=== PATIENT | female | born 1940 | race Caucasian/White ===

== ENCOUNTER 2018-01-12 11:16 | Observation (INO) | payer MEDICARE, OTHER ==
[2018-01-12] MEDS ORDERED: HYDROmorphone 1 MG/ML Syringe IM ONE (11:43)
--- NOTE | 2018-01-12 11:45 | EDM.PDOC ---
ED HPI GENERAL MEDICAL PROBLEM - General Chief Complaint: Upper Extremity Injury/Pain Stated Complaint: FELL PAIN ON LEFT SIDE Time Seen by Provider: 01/12/18 11:38 Source of Information: Reports: Patient, RN Notes Reviewed History Limitations: Reports: No Limitations - History of Present Illness INITIAL COMMENTS - FREE TEXT/NARRATIVE: Karli presents today after falling onto he left side. She complains of left sided rib pain radiating to her left abdomen/flank areas. She denies LOC, use of blood thinners. Pain to left elbow, ROM intact. 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 Left Anterior Chest Pain Score (Numeric/FACES): 10 - Related Data Allergies Allergy/AdvReac Type Severity Reaction Status Date / Time aspirin Allergy Bleeding Verified 01/12/18 11:39 chlordiazepoxide Allergy Swelling Verified 01/12/18 11:39 [From Librax (with clidinium)] chlordiazepoxide HCl Allergy Swelling Verified 01/12/18 11:39 [From Librax (with methscopolamine)] clidinium bromide Allergy Swelling Verified 01/12/18 11:39 [From Librax (with clidinium)] methylscopolamine nitrate Allergy Swelling Verified 01/12/18 11:39 [From Librax (with methscopolamine)] Home Meds: Home Meds Acetaminophen with Codeine [Tylenol with Codeine #3 Tablet] 1 each PO Q6H PRN [History] Cyanocobalamin (Vitamin B-12) [Vitamin B-12] 1 ml INJECT [id number] 01/19/16 [ History] Ferrous Sulfate 325 mg PO DAILY 01/19/16 [History] HCTZ/Triamterene [Maxzide 25-37.5 MG] 2 each PO DAILY 01/19/16 [History] Multivitamin [Multiple Vitamins] 1 each PO DAILY 01/19/16 [History] Omeprazole Magnesium [Prilosec Otc] 20 mg PO BID 01/19/16 [History] PARoxetine [Paxil] 30 mg PO DAILY 01/19/16 [History] Potassium Chloride [Klor-Con 10] 10 meq PO DAILY 01/19/16 [History] Valsartan [Diovan] 80 mg PO DAILY 01/19/16 [History] Past Medical History HEENT History: Reports: Allergic Rhinitis, Cataract, Impaired Vision Cardiovascular History: Reports: Heart Murmur, High Cholesterol, Hypertension Respiratory History: Reports: Sleep Apnea Gastrointestinal History: Reports: GERD, GI Bleed, Other (See Below) Other Gastrointestinal History: Peptic ulcer Genitourinary History: Reports: None [employer] History: Reports: , Spontaneous Musculoskeletal History: Reports: Fracture, Fibromyalgia, Osteoarthritis, Osteoporosis Hematologic History: Reports: Anemia, Blood Transfusion(s) Oncologic (Cancer) History: Reports: Cervix - Infectious Disease History Infectious Disease History: Reports: Chicken Pox, Measles, Mumps, Scarlet Fever - Past Surgical History GI Surgical History: Reports: Appendectomy, Bariatric Procedure, Cholecystectomy , EGD, Hernia, Inguinal Musculoskeletal Surgical History: Reports: Arthroscopic Procedure, Hip Replacement Review of Systems - Review of Systems Review Of Systems: See Below Constitutional: Reports: No Symptoms Eyes: Reports: No Symptoms Ears: Reports: No Symptoms Nose: Reports: No Symptoms Mouth/Throat: Reports: No Symptoms Respiratory: Reports: Other (Pain to left lateral ribs status post fall with radiation to left abdomen/flank areas). Denies: Shortness of Breath, Wheezing, Cough Cardiovascular: Reports: No Symptoms GI/Abdominal: Denies: Abdominal Pain, Nausea, Vomiting Genitourinary: Reports: No Symptoms Musculoskeletal: Reports: Other (left arm pain from fall. 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 Pain to left elbow, edema, abrasion. Exam Limited By: No Limitations General Appearance: Alert, WD/WN, Mild Distress Eye Exam: Bilateral Eye: Normal Inspection, PERRL Ears: Normal External Exam, Normal Canal, Hearing Grossly Normal, Normal TMs Ear Exam: Bilateral Ear: Auricle Normal, Canal Normal, TM normal Nose: Normal Inspection, Normal Mucosa, No Blood Throat/Mouth: Normal Inspection, Normal Lips, Normal Gums, Normal Oropharynx, Normal Voice, No Airway Compromise Head: Atraumatic, Normocephalic Neck: Normal Inspection, Supple, Non-Tender, Full Range of Motion. No: Lymphadenopathy (R), Lymphadenopathy (L) Respiratory/Chest: No Respiratory Distress, Lungs Clear, Normal Breath Sounds, No Accessory Muscle Use, Other (Pain with inspiration to left lateral chest, no subcutaneous emphysema palpated. Tenderness with palpation entire lateral left side from axilla to last rib. ) Cardiovascular: Normal Peripheral Pulses, Regular Rate, Rhythm, No Edema, No Murmur, No Rub Peripheral Pulses: 3+: Radial (L), Radial (R), Dorsalis Pedis (L), Dorsalis Pedis (R) GI/Abdominal: Normal Bowel Sounds, Soft, Non-Tender, No Distention, No Mass Back Exam: Normal Inspection, Full Range of Motion, CVA Tenderness (L). No: CVA Tenderness (R) Extremities: Normal Range of Motion, No Pedal Edema, Normal Capillary Refill, Other (Tenderness with edema to left elbow with small abrasions. ROM intact. ) Neurological: Alert, Oriented, CN II-XII Intact, Normal Cognition, Normal Gait, No Motor/Sensory Deficits, Other (GCS 15) Psychiatric: Normal Affect, Normal Mood Skin Exam: Warm, Dry, No Rash, Ecchymosis, Other (small abrasions to left elbow) Lymphatic: No Adenopathy Course - Vital Signs Last Recorded V/S: Last Vital Signs Temp 36.6 C 01/12/18 11:50 Pulse 69 01/12/18 11:50 Resp 16 01/12/18 11:50 BP 154/82 H 01/12/18 11:50 Pulse Ox 96 01/12/18 11:50 - Orders/Labs/Meds Orders: Active Orders 24 hr Category Date Time Status Chest Abdomen Pelvis wo Cont [CT] Stat Exams 01/12/18 11:43 Taken UA W/MICROSCOPIC [URIN] Stat Lab 01/12/18 12:16 Ordered Sodium Chloride 0.9% [Saline Flush] Med 01/12/18 13:02 Active 10 ml FLUSH ASDIRECTED PRN Saline Lock Insert [OM.PC] Routine Oth 01/12/18 13:02 Ordered Medication Orders Sodium Chloride (Saline Flush) 10 ml FLUSH ASDIRECTED PRN PRN Reason: Keep Vein Open Last Admin: 01/12/18 13:30 Dose: 10 ml Labs: Laboratory Tests 01/12/18 01/12/18 Range/Units 12:16 12:16 WBC 9.5 (4.5-11.0) K/uL RBC 4.41 (3.30-5.50) M/uL Hgb 14.5 (12.0-15.0) g/dL Hct 43.3 (36.0-48.0) % MCV 98 (80-98) fL MCH 33 H (27-31) pg MCHC 34 (32-36) % Plt Count 215 (150-400) K/uL Neut % (Auto) 85 H (36-66) % Lymph % (Auto) 8 L (24-44) % [place] % (Auto) 7 H (2-6) % Eos % (Auto) 0 L (2-4) % Baso % (Auto) 0 (0-1) % Sodium 136 L (140-148) mmol/L Potassium 4.1 (3.6-5.2) mmol/L Chloride 99 L (100-108) mmol/L Carbon Dioxide 29 (21-32) mmol/L Anion Gap 12.1 (5.0-14.0) mmol/L BUN 20 H (7-18) mg/dL Creatinine 0.9 (0.6-1.0) mg/dL Est Cr Clr Drug Dosing 40.74 mL/min Estimated GFR (MDRD) > 60 (>60) Glucose 115 H (74-106) mg/dL Calcium 9.2 (8.5-10.1) mg/dL Total Bilirubin 0.4 (0.2-1.0) mg/dL AST 29 (15-37) U/L ALT 26 (12-78) U/L Alkaline Phosphatase 73 (46-116) U/L Total Protein 7.4 (6.4-8.2) g/dL Albumin 3.6 (3.4-5.0) g/dL Globulin 3.8 H (2.3-3.5) g/dL Albumin/Globulin Ratio 1.0 L (1.2-2.2) Patient lab work reviewed. Meds: Medications Generic Name Dose Route Start Last Admin Trade Name Freq PRN Reason Stop Dose Admin Sodium Chloride 10 ml 01/12/18 13:02 01/12/18 13:30 Saline Flush FLUSH 10 ml ASDIRECTED PRN Administration Keep Vein Open Discontinued Medications Generic Name Dose Route Start Last Admin Trade Name Allanq PRN Reason Stop Dose Admin Hydromorphone HCl 1 mg 01/12/18 11:43 01/12/18 11:54 Dilaudid IM 01/12/18 11:44 1 mg ONETIME ONE Administration GCS 15 - Radiology Interpretation CT Results Date: 01/12/18 (CT chest abdomen pelvis: acute left sided rib fractures of 4th,5th,6th, 7th, 8th and 10th. Tiny pneumothorax. ) - Re-Assessments/Exams Free Text/Narrative Re-Assessment/Exam: 01/12/18 12:42 CT wet read with Dr. Campo, multiple rib fractures identified. Patient will admitted as observation. Dr. Hunt notified, he is in agreement with plan. Patient notified, she is in agreement with plan. Departure - Departure Time of Disposition: 13:04 Disposition: Refer to Observation Condition: Fair Clinical Impression: Ribs, multiple fractures, Left elbow contusion, Pneumothorax - Discharge Information Referrals: Wil Jaeger MD [Primary Care Provider] - Forms: ED Department Discharge - My Orders Last 24 Hours: My Active Orders 01/12/18 11:43 Chest Abdomen Pelvis wo Cont [CT] Stat 01/12/18 12:16 UA W/MICROSCOPIC [URIN] Stat 01/12/18 13:02 Sodium Chloride 0.9% [Saline Flush] 10 ml FLUSH ASDIRECTED PRN Saline Lock Insert [OM.PC] Routine - Assessment/Plan Last 24 Hours: My Active Orders 01/12/18 11:43 Chest Abdomen Pelvis wo Cont [CT] Stat 01/12/18 12:16 UA W/MICROSCOPIC [URIN] Stat 01/12/18 13:02 Sodium Chloride 0.9% [Saline Flush] 10 ml FLUSH ASDIRECTED PRN Saline Lock Insert [OM.PC] Routine Assessment:: Multiple rib fractures left - 4,5,6,7,8,10th ribs Tiny pneumothorax Left elbow contusion Plan: Patient will be admitted as observation for pain control, multiple rib fractures to left side, contusion left elbow.
[2018-01-12] MEDS: Sodium Chloride 0.9% 10 ML Syringe FLUSH PRN (13:30)
--- NOTE | 2018-01-12 13:53 | PCM.HP ---
H&P History of Present Illness - General Date of Service: 01/12/18 Admit Problem/Dx: Admission Diagnosis/Problem Admission Diagnosis/Problem Fracture of rib of left side Source of Information: Patient, Provider History Limitations: Reports: No Limitations - History of Present Illness Initial Comments - Free Text/Narative: Karli presents to the emergency room with left-sided chest pain. Pain started after her dog lunged at her and knocked her into her fireplace mantle. She describes moderate to moderately severe left-sided pain that is worse with respiration and better with rest. She hasn't tried anything to make the pain feel better but did receive a dose of pain medication in the emergency room which has provided significant benefit. Pain is described as sharp. Pain radiates throughout the left side of her chest. She has some mild discomfort in her left elbow which also struck the mantle. She does not have any abdominal pain or nausea. She does report that she feels mildly short of breath because she cannot take a deep breath due to the pain. She does not complain of headache and did not strike her head. No complaints of knee or hip pain. Workup in the emergency room revealed multiple left-sided rib fractures as well as a tiny left-sided pneumothorax. She will be admitted for observation and pain control. Left Anterior Chest Pain Score (Numeric/FACES): 10 - Related Data Allergies/Adverse Reactions: Allergies Allergy/AdvReac Type Severity Reaction Status Date / Time aspirin Allergy Bleeding Verified 01/12/18 11:39 chlordiazepoxide Allergy Swelling Verified 01/12/18 11:39 [From Librax (with clidinium)] chlordiazepoxide HCl Allergy Swelling Verified 01/12/18 11:39 [From Librax (with methscopolamine)] clidinium bromide Allergy Swelling Verified 01/12/18 11:39 [From Librax (with clidinium)] methylscopolamine nitrate Allergy Swelling Verified 01/12/18 11:39 [From Librax (with methscopolamine)] Home Medications: Home Meds Acetaminophen with Codeine [Tylenol with Codeine #3 Tablet] 1 each PO Q6H PRN [History] Cyanocobalamin (Vitamin B-12) [Vitamin B-12] 1 ml INJECT .[id number] 01/19/16 [ History] Ferrous Sulfate 325 mg PO DAILY 01/19/16 [History] HCTZ/Triamterene [Maxzide 25-37.5 MG] 2 each PO DAILY 01/19/16 [History] Multivitamin [Multiple Vitamins] 1 each PO DAILY 01/19/16 [History] Omeprazole Magnesium [Prilosec Otc] 20 mg PO BID 01/19/16 [History] PARoxetine [Paxil] 30 mg PO DAILY 01/19/16 [History] Potassium Chloride [Klor-Con 10] 10 meq PO DAILY 01/19/16 [History] Valsartan [Diovan] 80 mg PO DAILY 01/19/16 [History] Past Medical History HEENT History: Reports: Allergic Rhinitis, Cataract, Impaired Vision Cardiovascular History: Reports: Heart Murmur, High Cholesterol, Hypertension Respiratory History: Reports: Sleep Apnea Gastrointestinal History: Reports: GERD, GI Bleed, Other (See Below) Other Gastrointestinal History: Peptic ulcer Genitourinary History: Reports: 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: , 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 Musculoskeletal History: Reports: Fracture, Fibromyalgia, Osteoarthritis, Osteoporosis Hematologic History: Reports: Anemia, Blood Transfusion(s) Oncologic (Cancer) History: Reports: Cervix - Infectious Disease History Infectious Disease History: Reports: Chicken Pox, Measles, Mumps, Scarlet Fever - Past Surgical History GI Surgical History: Reports: Appendectomy, Bariatric Procedure, Cholecystectomy , EGD, Hernia, Inguinal Musculoskeletal Surgical History: Reports: Arthroscopic Procedure, Hip Replacement Social & Family History - Family History Cardiac: Denies: CAD - Tobacco Use Smoking Status *Q: Former Smoker Years of Tobacco use: 20 Packs/Tins Daily: 0.5 Used Tobacco, but Quit: Yes Month/Year Tobacco Last Used: 1999 Second Hand Smoke Exposure: No - Caffeine Use Caffeine Use: Reports: Coffee - Alcohol Use Alcohol Use History: No - Recreational Drug Use Recreational Drug Use: No H&P Review of Systems - Review of Systems: Review Of Systems: See Below Free Text/Narrative: A complete 12 point review of systems was obtained. Pertinent positives and negatives are noted in the history of present illness. All other systems were reviewed and were negative except as noted. Exam - Exam Exam: See Below - Vital Signs Vital Signs: Last Vital Signs Temp 36.6 C 01/12/18 11:50 Pulse 69 01/12/18 11:50 Resp 16 01/12/18 11:50 BP 154/82 H 01/12/18 11:50 Pulse Ox 96 01/12/18 11:50 Weight: 58.967 kg - Exam Quality Assessment: No: Supplemental Oxygen General: Alert, Oriented, Cooperative. No: Mild Distress HEENT: Conjunctiva Clear, Mucosa Moist & [place]. No: Scleral Icterus Neck: Supple, Trachea Midline Lungs: Clear to Auscultation, Normal Respiratory Effort Cardiovascular: Regular Rate, Regular Rhythm GI/Abdominal Exam: Normal Bowel Sounds, Soft, Non-Tender, No Distention Back Exam: Normal Inspection. No: Full Range of Motion Extremities: No Pedal Edema. No: Increased Warmth Skin: Warm, Dry Neuro Extensive - Mental Status: Alert, Oriented x3, Nl Response to Commands Neuro Extensive - Motor, Sensory, Reflexes: CN II-XII Intact. No: Dysarthria, Abnormal Motor Psychiatric: Alert, Normal Affect - Patient Data Lab Results Last 24 hrs: Laboratory Results - last 24 hr 01/12/18 01/12/18 Range/Units 12:16 12:16 WBC 9.5 (4.5-11.0) K/uL RBC 4.41 (3.30-5.50) M/uL Hgb 14.5 (12.0-15.0) g/dL Hct 43.3 (36.0-48.0) % MCV 98 (80-98) fL MCH 33 H (27-31) pg MCHC 34 (32-36) % Plt Count 215 (150-400) K/uL Neut % (Auto) 85 H (36-66) % Lymph % (Auto) 8 L (24-44) % [place] % (Auto) 7 H (2-6) % Eos % (Auto) 0 L (2-4) % Baso % (Auto) 0 (0-1) % Sodium 136 L (140-148) mmol/L Potassium 4.1 (3.6-5.2) mmol/L Chloride 99 L (100-108) mmol/L Carbon Dioxide 29 (21-32) mmol/L Anion Gap 12.1 (5.0-14.0) mmol/L BUN 20 H (7-18) mg/dL Creatinine 0.9 (0.6-1.0) mg/dL Est Cr Clr Drug Dosing 40.74 mL/min Estimated GFR (MDRD) > 60 (>60) Glucose 115 H (74-106) mg/dL Calcium 9.2 (8.5-10.1) mg/dL Total Bilirubin 0.4 (0.2-1.0) mg/dL AST 29 (15-37) U/L ALT 26 (12-78) U/L Alkaline Phosphatase 73 (46-116) U/L Total Protein 7.4 (6.4-8.2) g/dL Albumin 3.6 (3.4-5.0) g/dL Globulin 3.8 H (2.3-3.5) g/dL Albumin/Globulin Ratio 1.0 L (1.2-2.2) Result Diagrams: 01/12/18 12:16 01/12/18 12:16 Imaging Impressions Last 24 hrs: CT chest/abdomen/pelvis - images personally reviewed. There are multiple left sided rib fractures and a tiny left sided pneumothorax. No effusion. *Q Meaningful Use (ADM) - VTE *Q VTE Pharmacological Contraindications *Q: Risk of Bleeding - VTE Risk Assess *Q Each Risk Factor Represents 1 Point: None Total Score 1 Point Risk Factors: 0 Each Risk Factor Represents 2 Points: None Total Score 2 Point Risk Factors: 0 Each Risk Factor Represents 3 Points: Age 75 Years or Greater Total Score 3 Point Risk Factors: 3 Each Risk Factor Represents 5 Points: None Total Score 5 Point Risk Factors: 0 Venous Thromboembolism Risk Factor Score *Q: 3 - Problem List (1) Ribs, multiple fractures SNOMED Code(s): 7313944 ICD Code: S22.49XA - MULTIPLE FRACTURES OF RIBS, UNSP SIDE, INIT FOR CLOS FX Status: Acute Current Visit: Yes Qualifiers: Encounter type: initial encounter Fracture type: closed Laterality: left Qualified Code(s): S22.42XA - Multiple fractures of ribs, left side, initial encounter for closed fracture (2) Left elbow contusion SNOMED Code(s): 40835541 ICD Code: S50.02XA - CONTUSION OF LEFT ELBOW, INITIAL ENCOUNTER Status: Acute Current Visit: Yes Qualifiers: Encounter type: initial encounter Qualified Code(s): S50.02XA - Contusion of left elbow, initial encounter (3) Pneumothorax SNOMED Code(s): 23390220 ICD Code: J93.9 - PNEUMOTHORAX, UNSPECIFIED Status: Acute Current Visit: Yes Qualifiers: Pneumothorax type: traumatic Encounter type: initial encounter Qualified Code(s): S27.0XXA - Traumatic pneumothorax, initial encounter Problem List Initiated/Reviewed/Updated: Yes Orders Last 24hrs: Active Orders 24 hr Category Date Time Status Patient Status Manage Transfer [TRANSFER] Routine ADT 01/12/18 13:45 Ordered Chest Abdomen Pelvis wo Cont [CT] Stat Exams 01/12/18 11:43 Taken UA W/MICROSCOPIC [URIN] Stat Lab 01/12/18 12:16 Ordered Sodium Chloride 0.9% [Saline Flush] Med 01/12/18 13:02 Active 10 ml FLUSH ASDIRECTED PRN Saline Lock Insert [OM.PC] Routine Oth 01/12/18 13:02 Ordered Resuscitation Status Routine Resus Stat 01/12/18 13:47 Ordered Medication Orders Sodium Chloride (Saline Flush) 10 ml FLUSH ASDIRECTED PRN PRN Reason: Keep Vein Open Last Admin: 01/12/18 13:30 Dose: 10 ml Assessment/Plan Comment:: ASSESSMENT AND PLAN - Multiple left-sided rib fractures with tiny pneumothorax - because of the pain and shortness of breath she's not safe for outpatient management. Fractures were secondary to unintentional trauma. She is not currently hypoxic. -Repeat x-ray in the morning to see if pneumothorax has progressed -Acetaminophen for mild pain -Oxycodone for moderate pain -Hydromorphone for severe pain -Ice Essential hypertension - usual home medications will be continued. Maintenance issues - - DVT prophylaxis - mechanical with significant trauma today - GI prophylaxis - home PPI - Nutrition - regular diet - Hinojosa catheter - not indicated CODE STATUS - full code Admission justification - patient will be referred observation status for pain control and repeat chest x-ray in the morning Disposition - I anticipate discharged home after the hospital stay Primary care physician - Dr. Mil Hunt M.D.
[2018-01-12] MEDS ORDERED: Ondansetron 4 MG Tab.DIS PO PRN (14:20)
[2018-01-12] MEDS: HYDROmorphone 0.5 MG/0.5 ML Syringe IVPUSH PRN ×2 (14:50→17:03)
[2018-01-12] MEDS: oxyCODONE 5 MG Tab PO PRN ×2 (14:51→18:45)
[2018-01-12] MEDS ORDERED: Pantoprazole 40 MG Tab.CR PO SCH (21:00)
[2018-01-13] MEDS: oxyCODONE 5 MG Tab PO PRN ×2 (00:28→06:05)
[2018-01-13] MEDS: Acetaminophen 325 MG Tab PO PRN (08:01)
[2018-01-13] MEDS: OMEPRAZOLE 20MG (PTOM) PO SCH ×2 (08:30→16:19)
[2018-01-13] MEDS ORDERED: HCTZ PO SCH (09:00)
[2018-01-13] MEDS ORDERED: Non-Formulary Medication 1 Each (Potassium Chloride [Klor-Con 10] 10 MEQ) PO SCH (09:00)
[2018-01-13] MEDS ORDERED: Non-Formulary Medication 1 Each (Valsartan [Diovan] 80 MG) PO SCH (09:00)
[2018-01-13] MEDS ORDERED: PAROXETINE 30 MG PO SCH (09:00)
[2018-01-13] MEDS ORDERED: TRIAMTERENE PO SCH (09:00)
[2018-01-13] MEDS ORDERED: PARoxetine 20 MG Tab PO SCH (09:00)
--- NOTE | 2018-01-13 10:00 | PCM.PN ---
- General Info Date of Service: 01/13/18 Subjective Update: There were no acute events overnight. Patient has received a couple of doses of oxycodone and is very somnolent this morning. She spilled her coffee on her lap in her blanket. She reports pain with inspiration but is comfortable at rest. She has not been hypoxic. She feels short of breath because of the pain with breathing. Functional Status: Reports: Tolerating Diet - Review of Systems General: Denies: Fever Pulmonary: Reports: Pleuritic Chest Pain - Patient Data Vitals - Most Recent: Last Vital Signs Temp 36.2 C 01/13/18 07:05 Pulse 75 01/13/18 07:05 Resp 12 01/13/18 07:05 BP 127/61 01/13/18 07:05 Pulse Ox 94 L 01/13/18 07:05 Weight - Most Recent: 59.874 kg I&O - Last 24 Hours: Intake & Output 01/12/18 01/13/18 01/13/18 22:59 06:59 14:59 Intake Total 360 600 Output Total 200 200 Balance 160 -200 600 Lab Results Last 24 Hours: Laboratory Results - last 24 hr 01/12/18 01/12/18 01/12/18 Range/Units 12:16 12:16 16:48 WBC 9.5 (4.5-11.0) K/uL RBC 4.41 (3.30-5.50) M/uL Hgb 14.5 (12.0-15.0) g/dL Hct 43.3 (36.0-48.0) % MCV 98 (80-98) fL MCH 33 H (27-31) pg MCHC 34 (32-36) % Plt Count 215 (150-400) K/uL Neut % (Auto) 85 H (36-66) % Lymph % (Auto) 8 L (24-44) % [place] % (Auto) 7 H (2-6) % Eos % (Auto) 0 L (2-4) % Baso % (Auto) 0 (0-1) % Sodium 136 L (140-148) mmol/L Potassium 4.1 (3.6-5.2) mmol/L Chloride 99 L (100-108) mmol/L Carbon Dioxide 29 (21-32) mmol/L Anion Gap 12.1 (5.0-14.0) mmol/L BUN 20 H (7-18) mg/dL Creatinine 0.9 (0.6-1.0) mg/dL Est Cr Clr Drug Dosing 40.74 mL/min Estimated GFR (MDRD) > 60 (>60) Glucose 115 H (74-106) mg/dL Calcium 9.2 (8.5-10.1) mg/dL Total Bilirubin 0.4 (0.2-1.0) mg/dL AST 29 (15-37) U/L ALT 26 (12-78) U/L Alkaline Phosphatase 73 (46-116) U/L Total Protein 7.4 (6.4-8.2) g/dL Albumin 3.6 (3.4-5.0) g/dL Globulin 3.8 H (2.3-3.5) g/dL Albumin/Globulin Ratio 1.0 L (1.2-2.2) Urine Color Yellow Urine Appearance Cloudy Urine pH 6.0 (4.5-8.0) Ur Specific [place] 1.010 (1.008-1.030) Urine Protein Trace (NEGATIVE) mg/dL Urine Glucose (UA) Negative (NEGATIVE) mg/dL Urine Ketones Negative (NEGATIVE) mg/dL Urine Occult Blood Negative (NEGATIVE) Urine Nitrite Negative (NEGATIVE) Urine Bilirubin Negative (NEGATIVE) Urine Urobilinogen Normal (NORMAL) mg/dL Ur Leukocyte Esterase Moderate (NEGATIVE) Urine RBC Not seen (0-5) Urine WBC 10-20 H (0-5) Ur Epithelial Cells Few Amorphous Sediment Not seen Urine Bacteria Many Urine Mucus Not seen 01/13/18 01/13/18 Range/Units 04:59 04:59 WBC 7.9 (4.5-11.0) K/uL RBC 4.09 (3.30-5.50) M/uL Hgb 13.3 (12.0-15.0) g/dL Hct 40.1 (36.0-48.0) % MCV 98 (80-98) fL MCH 33 H (27-31) pg MCHC 33 (32-36) % Plt Count 205 (150-400) K/uL Neut % (Auto) (36-66) % Lymph % (Auto) (24-44) % [place] % (Auto) (2-6) % Eos % (Auto) (2-4) % Baso % (Auto) (0-1) % Sodium 132 L (140-148) mmol/L Potassium 3.8 (3.6-5.2) mmol/L Chloride 97 L (100-108) mmol/L Carbon Dioxide 28 (21-32) mmol/L Anion Gap 10.8 (5.0-14.0) mmol/L BUN 23 H (7-18) mg/dL Creatinine 0.9 (0.6-1.0) mg/dL Est Cr Clr Drug Dosing 40.74 mL/min Estimated GFR (MDRD) > 60 (>60) Glucose 105 (74-106) mg/dL Calcium 9.2 (8.5-10.1) mg/dL Total Bilirubin (0.2-1.0) mg/dL AST (15-37) U/L ALT (12-78) U/L Alkaline Phosphatase (46-116) U/L Total Protein (6.4-8.2) g/dL Albumin (3.4-5.0) g/dL Globulin (2.3-3.5) g/dL Albumin/Globulin Ratio (1.2-2.2) Urine Color Urine Appearance Urine pH (4.5-8.0) Ur Specific [place] (1.008-1.030) Urine Protein (NEGATIVE) mg/dL Urine Glucose (UA) (NEGATIVE) mg/dL Urine Ketones (NEGATIVE) mg/dL Urine Occult Blood (NEGATIVE) Urine Nitrite (NEGATIVE) Urine Bilirubin (NEGATIVE) Urine Urobilinogen (NORMAL) mg/dL Ur Leukocyte Esterase (NEGATIVE) Urine RBC (0-5) Urine WBC (0-5) Ur Epithelial Cells Amorphous Sediment Urine Bacteria Urine Mucus Med Orders - Current: Current Medications Acetaminophen (Tylenol) 650 mg PO Q4H PRN PRN Reason: Pain (Mild 1-3)/fever Last Admin: 01/13/18 08:01 Dose: 650 mg Cephalexin (Keflex) 500 mg PO BID [facility] Hydromorphone HCl (Dilaudid) 0.5 - 1 mg IVPUSH Q2H PRN PRN Reason: Pain (severe 7-10) Last Admin: 01/12/18 17:03 Dose: 0.5 mg Ondansetron HCl (Zofran Odt) 4 mg PO Q6H PRN PRN Reason: Nausea able to take PO Paroxetine 30mg Tab ((Ptom)) 0 each PO DAILY [facility] Omeprazole 20mg ( (Ptom)) 0 each PO BIDAC [facility] Potassium Chloride (Potassium Chloride) 10 meq PO DAILY [facility] Senna/Docusate Sodium (Senna Plus) 1 tab PO BID PRN PRN Reason: Constipation Last Admin: 01/13/18 08:01 Dose: 1 tab Sodium Chloride (Saline Flush) 10 ml FLUSH ASDIRECTED PRN PRN Reason: Keep Vein Open Last Admin: 01/12/18 13:30 Dose: 10 ml Tramadol HCl (Ultram) 50 mg PO Q4H PRN PRN Reason: Pain Triamterene/HCTZ (Maxzide 25-37.5 Mg) 2 each PO DAILY [facility] Valsartan (Diovan) 80 mg PO DAILY [facility] Discontinued Medications Hydromorphone HCl (Dilaudid) 1 mg IM ONETIME ONE Stop: 01/12/18 11:44 Last Admin: 01/12/18 11:54 Dose: 1 mg (Omeprazole Magnesium [Prilosec Otc] 20 Mg)Own Med 20 mg PO ONETIME ONE Stop: 01/12/18 22:31 Last Admin: 01/12/18 23:01 Dose: 20 mg Oxycodone HCl (Oxycodone) 5 - 10 mg PO Q4H PRN PRN Reason: Pain (moderate 4-6) Last Admin: 01/13/18 06:05 Dose: 5 mg Pantoprazole Sodium (Protonix) 40 mg PO BEDTIME [facility] Last Admin: 01/12/18 23:04 Dose: Not Given - Exam Quality Assessment: No: Supplemental Oxygen General: Alert, Oriented, Cooperative, No Acute Distress, Sedated Lungs: Clear to Auscultation, Normal Respiratory Effort GI/Abdominal Exam: Soft, No Distention Extremities: No Pedal Edema Psy/Mental Status: Alert, Normal Affect - Problem List & Annotations (1) Ribs, multiple fractures SNOMED Code(s): 1955008 Code(s): S22.49XA - MULTIPLE FRACTURES OF RIBS, UNSP SIDE, INIT FOR CLOS FX Status: Acute Current Visit: Yes Qualifiers: Encounter type: initial encounter Fracture type: closed Laterality: left Qualified Code(s): S22.42XA - Multiple fractures of ribs, left side, initial encounter for closed fracture (2) Left elbow contusion SNOMED Code(s): 10576433 Code(s): S50.02XA - CONTUSION OF LEFT ELBOW, INITIAL ENCOUNTER Status: Acute Current Visit: Yes Qualifiers: Encounter type: initial encounter Qualified Code(s): S50.02XA - Contusion of left elbow, initial encounter (3) Pneumothorax SNOMED Code(s): 67496809 Code(s): J93.9 - PNEUMOTHORAX, UNSPECIFIED Status: Acute Current Visit: Yes Qualifiers: Pneumothorax type: traumatic Encounter type: initial encounter Qualified Code(s): S27.0XXA - Traumatic pneumothorax, initial encounter - Problem List Review Problem List Initiated/Reviewed/Updated: Yes - My Orders Last 24 Hours: My Active Orders 01/12/18 13:47 Resuscitation Status Routine 01/12/18 14:20 Patient Status [ADT] Routine Cooling Warming Measures [RC] ASDIRECTED Notify Provider Vital Signs [RC] ASDIRECTED Oxygen Therapy [RC] PRN Up With Assistance [RC] ASDIRECTED VTE/DVT Education [RC] Per Unit Routine Vital Signs [RC] Q4H Acetaminophen [Tylenol] 650 mg PO Q4H PRN Docusate Sodium/Sennosides [Senna Plus] 1 tab PO BID PRN HYDROmorphone [Dilaudid] 0.5 - 1 mg IVPUSH Q2H PRN Ondansetron [Zofran ODT] 4 mg PO Q6H PRN Ice Pack [Ice Therapy] [OM.PC] Routine Sequential Compression Device [OM.PC] Per Unit Routine VTE Pharmacological Contraindications [AST] Per Unit Routine 01/12/18 Dinner Regular Diet [DIET] 01/13/18 05:58 Chest 2V [CR] Routine 01/13/18 08:30 Patient's Own Medication [Ptom] 0 each PO BIDAC 01/13/18 09:00 HCTZ/Triamterene [Maxzide 25-37.5 MG] 2 each PO DAILY Patient's Own Medication [Ptom] 0 each PO DAILY Potassium Chloride 10 meq PO DAILY Valsartan [Diovan] 80 mg PO DAILY 01/13/18 09:56 CULTURE URINE [RM] Routine 01/13/18 09:58 traMADol [Ultram] 50 mg PO Q4H PRN 01/13/18 10:00 cephALEXin [Keflex] 500 mg PO BID - Plan Plan:: ASSESSMENT AND PLAN - Multiple left-sided rib fractures with tiny pneumothorax - no hypoxia or progression of her pneumothorax. She seems overly sedated with the oxycodone. -Acetaminophen for mild pain -Change to tramadol for moderate pain -Hydromorphone for severe pain -Ice Essential hypertension - usual home medications will be continued. Maintenance issues - - DVT prophylaxis - mechanical with significant trauma today - GI prophylaxis - home PPI - Nutrition - regular diet Disposition - I anticipate discharge to home after the hospital stay Primary care physician - Dr. Mil Hunt M.D.
[2018-01-13] MEDS: Hydrochlorothiazide/Triamterene 25-37.5 Tab PO SCH (10:22)
[2018-01-13] MEDS: Cephalexin 250 MG Cap PO SCH ×2 (10:23→20:44)
[2018-01-13] MEDS: PAROXETINE 30 MG PO SCH (10:23)
[2018-01-13] MEDS: Potassium Chloride 10 MEQ Cap.ER PO SCH (10:23)
[2018-01-13] MEDS: traMADol 50 MG Tab PO PRN ×3 (10:28→20:43)
[2018-01-13] MEDS: HYDROmorphone 0.5 MG/0.5 ML Syringe IVPUSH PRN ×2 (16:15→22:50)
[2018-01-13] MEDS: Sodium Chloride 0.9% 10 ML Syringe FLUSH PRN (16:15)
[2018-01-14] MEDS: traMADol 50 MG Tab PO PRN ×6 (02:08→22:28)
[2018-01-14] MEDS: Acetaminophen 325 MG Tab PO PRN ×4 (08:41→22:29)
[2018-01-14] MEDS: OMEPRAZOLE 20MG (PTOM) PO SCH ×2 (08:42→16:55)
[2018-01-14] MEDS: Cephalexin 250 MG Cap PO SCH ×2 (08:43→21:18)
[2018-01-14] MEDS: Hydrochlorothiazide/Triamterene 25-37.5 Tab PO SCH (08:43)
[2018-01-14] MEDS: Potassium Chloride 10 MEQ Cap.ER PO SCH (08:43)
--- NOTE | 2018-01-14 09:07 | CR ---
CHEST: 2 view CLINICAL HISTORY:Multiple rib fractures COMPARISON:CT 01/12/2018 FINDINGS: Heart size and pulmonary vascularity are normal. There are atherosclerotic changes in the aorta. Lung hi are clear. Patient has known multiple left rib fractures. There is no pneumothorax . Impression: Multiple left rib fractures Lungs are well aerated
[2018-01-14] MEDS: PAROXETINE 30 MG PO SCH (10:38)
--- NOTE | 2018-01-14 14:40 | PCM.PN ---
- General Info Date of Service: 01/14/18 Subjective Update: There were no acute events overnight. Patient did have some difficulty with pain overnight and received 1 dose of IV pain medication. Pain has improved today and she seems to be doing well with 2 tablets of tramadol. She has not had any fevers. She continues to feel a little short of breath because it hurts to take a deep breath. She is very nervous about going home because of her large dogs and she's afraid that they're going to jump and bumped the painful rib area. Urine culture is growing a gram-negative fredis. Functional Status: Reports: Pain Controlled - Patient Data Vitals - Most Recent: Last Vital Signs Temp 36.9 C 01/14/18 11:12 Pulse 82 01/14/18 11:12 Resp 16 01/14/18 11:12 BP 141/72 H 01/14/18 11:12 Pulse Ox 91 L 01/14/18 11:16 Weight - Most Recent: 59.874 kg I&O - Last 24 Hours: Intake & Output 01/13/18 01/14/18 01/14/18 22:59 06:59 14:59 Intake Total 440 400 120 Balance 440 400 120 Cole Results Last 24 Hours: Microbiology 01/13/18 00:01 Urine Culture - Preliminary Urine, Clean Catch Med Orders - Current: Current Medications Acetaminophen (Tylenol) 650 mg PO Q4H PRN PRN Reason: Pain (Mild 1-3)/fever Last Admin: 01/14/18 14:02 Dose: 650 mg Cephalexin (Keflex) 500 mg PO BID [facility] Last Admin: 01/14/18 08:43 Dose: 500 mg Hydromorphone HCl (Dilaudid) 0.5 - 1 mg IVPUSH Q2H PRN PRN Reason: Pain (severe 7-10) Last Admin: 01/13/18 22:50 Dose: 0.5 mg Ondansetron HCl (Zofran Odt) 4 mg PO Q6H PRN PRN Reason: Nausea able to take PO Last Admin: 01/14/18 05:59 Dose: 4 mg Paroxetine 30mg Tab ((Ptom)) 0 each PO DAILY [facility] Last Admin: 01/14/18 10:38 Dose: 1 each Omeprazole 20mg ( (Ptom)) 0 each PO BIDAC [facility] Last Admin: 01/14/18 08:42 Dose: 1 each Potassium Chloride (Potassium Chloride) 10 meq PO DAILY [facility] Last Admin: 01/14/18 08:43 Dose: 10 meq Senna/Docusate Sodium (Senna Plus) 1 tab PO BID PRN PRN Reason: Constipation Last Admin: 01/13/18 20:48 Dose: 1 tab Sodium Chloride (Saline Flush) 10 ml FLUSH ASDIRECTED PRN PRN Reason: Keep Vein Open Last Admin: 01/13/18 16:15 Dose: 10 ml Tramadol HCl (Ultram) 50 - 100 mg PO Q4H PRN PRN Reason: Pain Last Admin: 01/14/18 14:36 Dose: 100 mg Triamterene/HCTZ (Maxzide 25-37.5 Mg) 2 each PO DAILY [facility] Last Admin: 01/14/18 08:43 Dose: 2 each Valsartan (Diovan) 80 mg PO DAILY [facility] Last Admin: 01/14/18 08:43 Dose: 80 mg Discontinued Medications Hydromorphone HCl (Dilaudid) 1 mg IM ONETIME ONE Stop: 01/12/18 11:44 Last Admin: 01/12/18 11:54 Dose: 1 mg (Omeprazole Magnesium [Prilosec Otc] 20 Mg)Own Med 20 mg PO ONETIME ONE Stop: 01/12/18 22:31 Last Admin: 01/12/18 23:01 Dose: 20 mg Oxycodone HCl (Oxycodone) 5 - 10 mg PO Q4H PRN PRN Reason: Pain (moderate 4-6) Last Admin: 01/13/18 06:05 Dose: 5 mg Pantoprazole Sodium (Protonix) 40 mg PO BEDTIME [facility] Last Admin: 01/12/18 23:04 Dose: Not Given Tramadol HCl (Ultram) 50 mg PO Q4H PRN PRN Reason: Pain Last Admin: 01/14/18 05:59 Dose: 50 mg - Exam Quality Assessment: No: Supplemental Oxygen General: Alert, Oriented, Cooperative, No Acute Distress Lungs: Normal Respiratory Effort GI/Abdominal Exam: Soft, No Distention Extremities: No Pedal Edema Psy/Mental Status: Alert, Normal Affect - Problem List & Annotations (1) Ribs, multiple fractures SNOMED Code(s): 3833225 Code(s): S22.49XA - MULTIPLE FRACTURES OF RIBS, UNSP SIDE, INIT FOR CLOS FX Status: Acute Current Visit: Yes Qualifiers: Encounter type: initial encounter Fracture type: closed Laterality: left Qualified Code(s): S22.42XA - Multiple fractures of ribs, left side, initial encounter for closed fracture (2) Left elbow contusion SNOMED Code(s): 47166426 Code(s): S50.02XA - CONTUSION OF LEFT ELBOW, INITIAL ENCOUNTER Status: Acute Current Visit: Yes Qualifiers: Encounter type: initial encounter Qualified Code(s): S50.02XA - Contusion of left elbow, initial encounter (3) Pneumothorax SNOMED Code(s): 53287569 Code(s): J93.9 - PNEUMOTHORAX, UNSPECIFIED Status: Acute Current Visit: Yes Qualifiers: Pneumothorax type: traumatic Encounter type: initial encounter Qualified Code(s): S27.0XXA - Traumatic pneumothorax, initial encounter - Problem List Review Problem List Initiated/Reviewed/Updated: Yes - My Orders Last 24 Hours: My Active Orders 01/14/18 09:16 traMADol [Ultram] 50 - 100 mg PO Q4H PRN - Plan Plan:: ASSESSMENT AND PLAN - Multiple left-sided rib fractures with tiny pneumothorax - no hypoxia or progression of her pneumothorax. Pain control finally improving with the increased dose of tramadol. Seems to be moving better and should be ready for discharge tomorrow. -Acetaminophen for mild pain -Continue tramadol with dose increased this morning -Hydromorphone for severe pain -Ice Probable urinary tract infection - no significant symptoms but urine culture is growing a gram-negative fredis with identification pending. No fevers. -Continue cephalexin Essential hypertension - usual home medications will be continued. Maintenance issues - - DVT prophylaxis - mechanical with significant trauma - GI prophylaxis - home PPI - Nutrition - regular diet Disposition - I anticipate discharge to home after the hospital stay, likely tomorrow if stable overnight Primary care physician - Dr. Mil Hunt M.D.
[2018-01-15] MEDS: traMADol 50 MG Tab PO PRN ×5 (02:34→23:30)
[2018-01-15] MEDS: OMEPRAZOLE 20MG (PTOM) PO SCH ×2 (07:30→16:47)
[2018-01-15] MEDS: Cephalexin 250 MG Cap PO SCH ×2 (09:07→20:00)
[2018-01-15] MEDS: Potassium Chloride 10 MEQ Cap.ER PO SCH (09:08)
[2018-01-15] MEDS: Hydrochlorothiazide/Triamterene 25-37.5 Tab PO SCH (09:08)
[2018-01-15] MEDS: PAROXETINE 30 MG PO SCH (09:09)
--- NOTE | 2018-01-15 11:32 | PCM.PN ---
- General Info Date of Service: 01/15/18 Subjective Update: Ms. Aguilar has been stable since yesterday, vital signs are good and she's not had significant temperature elevation. Respiratory status relatively stable , saturations have improved compared to a few days ago. Continues to have severe pain with movement but at rest pain is relatively well controlled. Functional Status: Reports: Tolerating Diet, Ambulating, Urinating - Review of Systems General: Reports: Weakness. Denies: Fever, Chills Pulmonary: Reports: Other (Chest wall pain). Denies: Cough, Sputum Cardiovascular: Reports: No Symptoms Gastrointestinal: Reports: No Symptoms - Patient Data Vitals - Most Recent: Last Vital Signs Temp 97.5 F 01/15/18 10:40 Pulse 83 01/15/18 10:40 Resp 20 01/15/18 10:40 BP 157/74 H 01/15/18 10:40 Pulse Ox 93 L 01/15/18 10:40 Weight - Most Recent: 131 lb 15.993 oz I&O - Last 24 Hours: Intake & Output 01/14/18 01/15/18 01/15/18 22:59 06:59 14:59 Intake Total 500 600 Balance 500 600 Cole Results Last 24 Hours: Microbiology 01/13/18 00:01 Urine Culture - Final Urine, Clean Catch Klebsiella Pneumonia Ss Pneumo Med Orders - Current: Current Medications Acetaminophen (Tylenol) 650 mg PO Q4H PRN PRN Reason: Pain (Mild 1-3)/fever Last Admin: 01/14/18 22:29 Dose: 650 mg Cephalexin (Keflex) 500 mg PO BID [facility] Last Admin: 01/15/18 09:07 Dose: 500 mg Hydromorphone HCl (Dilaudid) 0.5 - 1 mg IVPUSH Q2H PRN PRN Reason: Pain (severe 7-10) Last Admin: 01/13/18 22:50 Dose: 0.5 mg Ondansetron HCl (Zofran Odt) 4 mg PO Q6H PRN PRN Reason: Nausea able to take PO Last Admin: 01/14/18 05:59 Dose: 4 mg Paroxetine 30mg Tab ((Ptom)) 0 each PO DAILY [facility] Last Admin: 01/15/18 09:09 Dose: 1 each Omeprazole 20mg ( (Ptom)) 0 each PO BIDAC [facility] Last Admin: 01/15/18 07:30 Dose: 1 each Potassium Chloride (Potassium Chloride) 10 meq PO DAILY [facility] Last Admin: 01/15/18 09:08 Dose: 10 meq Senna/Docusate Sodium (Senna Plus) 1 tab PO BID PRN PRN Reason: Constipation Last Admin: 01/15/18 09:09 Dose: 1 tab Sodium Chloride (Saline Flush) 10 ml FLUSH ASDIRECTED PRN PRN Reason: Keep Vein Open Last Admin: 01/13/18 16:15 Dose: 10 ml Tramadol HCl (Ultram) 50 - 100 mg PO Q4H PRN PRN Reason: Pain Last Admin: 01/15/18 06:35 Dose: 100 mg Triamterene/HCTZ (Maxzide 25-37.5 Mg) 2 each PO DAILY [facility] Last Admin: 01/15/18 09:08 Dose: 2 each Valsartan (Diovan) 80 mg PO DAILY [facility] Last Admin: 01/15/18 09:06 Dose: 80 mg Discontinued Medications Hydromorphone HCl (Dilaudid) 1 mg IM ONETIME ONE Stop: 01/12/18 11:44 Last Admin: 01/12/18 11:54 Dose: 1 mg (Omeprazole Magnesium [Prilosec Otc] 20 Mg)Own [facility] 20 mg PO ONETIME ONE Stop: 01/12/18 22:31 Last Admin: 01/12/18 23:01 Dose: 20 mg Oxycodone HCl (Oxycodone) 5 - 10 mg PO Q4H PRN PRN Reason: Pain (moderate 4-6) Last Admin: 01/13/18 06:05 Dose: 5 mg Pantoprazole Sodium (Protonix) 40 mg PO BEDTIME [facility] Last Admin: 01/12/18 23:04 Dose: Not Given Tramadol HCl (Ultram) 50 mg PO Q4H PRN PRN Reason: Pain Last Admin: 01/14/18 05:59 Dose: 50 mg - Exam Quality Assessment: DVT Prophylaxis General: Alert, Oriented, Cooperative, Mild Distress Lungs: Clear to Auscultation, Normal Respiratory Effort Cardiovascular: Regular Rate, Regular Rhythm, No Murmurs GI/Abdominal Exam: Soft, Non-Tender, No Organomegaly, No Distention Extremities: Non-Tender, No Pedal Edema Skin: Warm, Dry, Intact - Problem List Review Problem List Initiated/Reviewed/Updated: Yes - Plan Plan:: ASSESSMENT AND PLAN - Multiple left-sided rib fractures with tiny pneumothorax -pain has been stable, no significant respiratory compromise -Acetaminophen for mild pain -Continue tramadol with dose increased this morning -Hydromorphone for severe pain -Ice Probable urinary tract infection - no significant symptoms but urine culture is growing a gram-negative fredis with identification pending. No fevers. -Continue cephalexin Essential hypertension - usual home medications will be continued. Maintenance issues - - DVT prophylaxis - mechanical with significant trauma - GI prophylaxis - home PPI - Nutrition - regular diet Disposition - I anticipate discharge to home after the hospital stay, likely tomorrow if stable overnight Primary care physician - Dr. Jaeger
[2018-01-15] MEDS: Acetaminophen 325 MG Tab PO PRN (23:29)
[2018-01-16] MEDS: traMADol 50 MG Tab PO PRN ×2 (03:45→08:00)
[2018-01-16 07:32] VITALS: BP 141/70
[2018-01-16] MEDS: Cephalexin 250 MG Cap PO SCH (08:03)
[2018-01-16] MEDS: Potassium Chloride 10 MEQ Cap.ER PO SCH (08:03)
[2018-01-16] MEDS: OMEPRAZOLE 20MG (PTOM) PO SCH (08:03)
[2018-01-16] MEDS: PAROXETINE 30 MG PO SCH (08:04)
[2018-01-16] MEDS: Hydrochlorothiazide/Triamterene 25-37.5 Tab PO SCH (08:04)
--- NOTE | 2018-01-16 11:55 | PCM.DCSUM1 ---
Discharge Summary - Hospital Course Brief History: Karli is a 77-year-old woman who was admitted through the emergency department after she fell at home experiencing left chest wall pain secondary to multiple rib fractures and a small pneumothorax. - Discharge Data Discharge Date: 01/16/18 Discharge Disposition: Home, W Home Health Agency 06 Condition: Stable - Discharge Diagnosis/Problem(s) (1) UTI (urinary tract infection) SNOMED Code(s): 22705013 ICD Code: N39.0 - URINARY TRACT INFECTION, SITE NOT SPECIFIED Status: Acute Current Visit: Yes (2) Ribs, multiple fractures SNOMED Code(s): 1828841 ICD Code: S22.49XA - MULTIPLE FRACTURES OF RIBS, UNSP SIDE, INIT FOR CLOS FX Status: Acute Current Visit: Yes Qualifiers: Encounter type: initial encounter Fracture type: closed Laterality: left Qualified Code(s): S22.42XA - Multiple fractures of ribs, left side, initial encounter for closed fracture (3) Left elbow contusion SNOMED Code(s): 67801302 ICD Code: S50.02XA - CONTUSION OF LEFT ELBOW, INITIAL ENCOUNTER Status: Acute Current Visit: Yes Qualifiers: Encounter type: initial encounter Qualified Code(s): S50.02XA - Contusion of left elbow, initial encounter (4) Pneumothorax SNOMED Code(s): 69578912 ICD Code: J93.9 - PNEUMOTHORAX, UNSPECIFIED Status: Acute Current Visit: Yes Qualifiers: Pneumothorax type: traumatic Encounter type: initial encounter Qualified Code(s): S27.0XXA - Traumatic pneumothorax, initial encounter - Patient Summary/Data Hospital Course: Karli presented to the emergency room with left-sided chest pain. Pain started after her dog lunged at her and knocked her into her fireplace mantle. She describes moderate to moderately severe left-sided pain that is worse with respiration and better with rest. She hasn't tried anything to make the pain feel better but did receive a dose of pain medication in the emergency room which has provided significant benefit. Pain is described as sharp. Pain radiates throughout the left side of her chest. She has some mild discomfort in her left elbow which also struck the mantle. She does not have any abdominal pain or nausea. She does report that she feels mildly short of breath because she cannot take a deep breath due to the pain. She does not complain of headache and did not strike her head. No complaints of knee or hip pain. Workup in the emergency room revealed multiple left-sided rib fractures as well as a tiny left-sided pneumothorax. On admission she was given IV fluids for hydration and pain medication as needed. Urinalysis was obtained and did show evidence of underlying urinary tract infection, urine culture was obtained and she was started on antibiotic therapy. Culture later grew out Klebsiella which was sensitive to antibiotic therapy with Keflex and she will be discharged on additional 2 days of Keflex to complete a five-day course of antibiotic therapy. She was seen daily by physical therapy and gradually improved during hospitalization to the point where she was able to walk and transfer with minimal assistance. Tramadol seemed to work best for her for pain and she will be discharged on this 50 mg every 4 hours as needed for pain. Home care will be arranged for her after discharge and she will receive home physical therapy as well as occupational therapy. Follow-up appointment will be scheduled with Dr. Jaeger within one week. Activity will be as tolerated and she will resume her usual diet. - Patient Instructions Diet: Usual Diet as Tolerated Activity: As Tolerated Other/Special Instructions: Please schedule follow-up appointment with Dr. Jaeger within one week. Please arrange for home care after discharge with home physical therapy and occupational therapy. - Discharge Plan *PRESCRIPTION DRUG MONITORING PROGRAM REVIEWED*: Not Applicable *COPY OF PRESCRIPTION DRUG MONITORING REPORT IN PATIENT SHAME[place]: Not Applicable Prescriptions/Med Rec: Cephalexin [Keflex] 500 mg PO BID #4 capsule traMADol [Ultram] 50 mg PO Q4H PRN #30 tablet PRN Reason: Pain Home Medications: Home Meds Cyanocobalamin (Vitamin B-12) [Vitamin B-12] 1 ml INJECT .[id number] 01/19/16 [ History] Ferrous Sulfate 325 mg PO DAILY 01/19/16 [History] HCTZ/Triamterene [Maxzide 25-37.5 MG] 2 each PO DAILY 01/19/16 [History] Multivitamin [Multiple Vitamins] 1 each PO DAILY 01/19/16 [History] Omeprazole Magnesium [Prilosec Otc] 20 mg PO BID 01/19/16 [History] PARoxetine [Paxil] 30 mg PO DAILY 01/19/16 [History] Potassium Chloride [Klor-Con 10] 10 meq PO DAILY 01/19/16 [History] Valsartan [Diovan] 80 mg PO DAILY 01/19/16 [History] Cephalexin [Keflex] 500 mg PO BID #4 capsule 01/16/18 [Rx] traMADol [Ultram] 50 mg PO Q4H PRN #30 tablet 01/16/18 [Rx] Referrals: Wil Jaeger MD [Primary Care Provider] - - Discharge Summary/Plan Comment DC Time >30 min.: No - Patient Data Vitals - Most Recent: Last Vital Signs Temp 97.7 F 01/16/18 07:28 Pulse 86 01/16/18 07:28 Resp 16 01/16/18 07:28 BP 141/70 H 01/16/18 08:03 Pulse Ox 92 L 01/16/18 08:46 Weight - Most Recent: 131 lb 15.993 oz I&O - Last 24 hours: Intake & Output 01/15/18 01/16/18 01/16/18 22:59 06:59 14:59 Intake Total 800 Balance 800 Med Orders - Current: Current Medications Acetaminophen (Tylenol) 650 mg PO Q4H PRN PRN Reason: Pain (Mild 1-3)/fever Last Admin: 01/15/18 23:29 Dose: 650 mg Cephalexin (Keflex) 500 mg PO BID [facility] Last Admin: 01/16/18 08:03 Dose: 500 mg Hydromorphone HCl (Dilaudid) 0.5 - 1 mg IVPUSH Q2H PRN PRN Reason: Pain (severe 7-10) Last Admin: 01/13/18 22:50 Dose: 0.5 mg Ondansetron HCl (Zofran Odt) 4 mg PO Q6H PRN PRN Reason: Nausea able to take PO Last Admin: 01/14/18 05:59 Dose: 4 mg Paroxetine 30mg Tab ((Ptom)) 0 each PO DAILY [facility] Last Admin: 01/16/18 08:04 Dose: 1 each Omeprazole 20mg ( (Ptom)) 0 each PO BIDAC [facility]LEN[facility] Last Admin: 01/16/18 08:03 Dose: 1 each Potassium Chloride (Potassium Chloride) 10 meq PO DAILY [facility] Last Admin: 01/16/18 08:03 Dose: 10 meq Senna/Docusate Sodium (Senna Plus) 1 tab PO BID PRN PRN Reason: Constipation Last Admin: 01/16/18 08:00 Dose: 1 tab Sodium Chloride (Saline Flush) 10 ml FLUSH ASDIRECTED PRN PRN Reason: Keep Vein Open Last Admin: 01/13/18 16:15 Dose: 10 ml Tramadol HCl (Ultram) 50 - 100 mg PO Q4H PRN PRN Reason: Pain Last Admin: 01/16/18 08:00 Dose: 100 mg Triamterene/HCTZ (Maxzide 25-37.5 Mg) 2 each PO DAILY [facility] Last Admin: 01/16/18 08:04 Dose: 2 each Valsartan (Diovan) 80 mg PO DAILY [facility] Last Admin: 01/16/18 08:03 Dose: 80 mg Discontinued Medications Hydromorphone HCl (Dilaudid) 1 mg IM ONETIME ONE Stop: 01/12/18 11:44 Last Admin: 01/12/18 11:54 Dose: 1 mg Influenza Virus Vaccine (Pharmacy To Dose - Influenza Vaccine) 1 each IM ONETIME ONE Stop: 01/16/18 10:01 (Omeprazole Magnesium [Prilosec Otc] 20 Mg)Own Med 20 mg PO ONETIME ONE Stop: 01/12/18 22:31 Last Admin: 01/12/18 23:01 Dose: 20 mg Oxycodone HCl (Oxycodone) 5 - 10 mg PO Q4H PRN PRN Reason: Pain (moderate 4-6) Last Admin: 01/13/18 06:05 Dose: 5 mg Pantoprazole Sodium (Protonix) 40 mg PO BEDTIME [facility] Last Admin: 01/12/18 23:04 Dose: Not Given Tramadol HCl (Ultram) 50 mg PO Q4H PRN PRN Reason: Pain Last Admin: 01/14/18 05:59 Dose: 50 mg - Exam General: Reports: Alert, Oriented, Cooperative, Mild Distress Lungs: Reports: Clear to Auscultation, Normal Respiratory Effort Cardiovascular: Reports: Regular Rate, Regular Rhythm, No Murmurs GI/Abdominal Exam: Soft, Non-Tender, No Organomegaly, No Distention *Q Meaningful Use (DIS) - VTE *Q VTE Pharmacological Contraindications *Q: Risk of Bleeding
== END 2018-01-16 13:15 | disposition home health service (06) ==
LOC: JP.ED 11:16 → JP.MS 13:45
PROVIDERS: ADMIT Internal Medicine; ATTEND Hospitalist
DX: S22.42XA Multiple fractures of ribs, left side, initial encounter for closed fracture (principal); S27.0XXA Traumatic pneumothorax, initial encounter; S50.02XA Contusion of left elbow, initial encounter; N39.0 Urinary tract infection, site not specified; W54.1XXA Struck by dog, initial encounter; Z79.899 Other long term (current) drug therapy; Z88.6 Allergy status to analgesic agent; Z88.8 Allergy status to other drugs, medicaments and biological substances; Z87.891 Personal history of nicotine dependence
CPT/HCPCS: 36415; 71046; 71046-26; 71250; 74176; 80048; 80053; 81001; 85025; 85027; 87086; 87088; 87186; 96372; 96374; 96376; 99284; 99285-25; A9270-GY; G0378; J1170; J7050

== ENCOUNTER 2019-01-25 09:28 | Inpatient (IN) | payer MEDICARE, OTHER ==
[2019-01-25] MEDS ORDERED: Lactated Ringers 1,000 ML IV SCH (10:00)
--- NOTE | 2019-01-25 10:01 | EDM.PDOC ---
ED HPI GENERAL MEDICAL PROBLEM - General Chief Complaint: Possible Sepsis Stated Complaint: WEAKNESS, LETHARGIC Time Seen by Provider: 01/25/19 09:51 Source of Information: Reports: Patient, Family, RN Notes Reviewed History Limitations: Reports: No Limitations - History of Present Illness INITIAL COMMENTS - FREE TEXT/NARRATIVE: 78-year-old female presents emergency department today complaint of fever, she has been ill for the last 4 days she does complain of some burning with urination does have some difficulty breathing and some chest pain as well 4 days ago. - Related Data Allergies Allergy/AdvReac Type Severity Reaction Status Date / Time aspirin Allergy Bleeding Verified 01/12/18 11:39 chlordiazepoxide Allergy Swelling Verified 01/12/18 11:39 [From Librax (with clidinium)] chlordiazepoxide HCl Allergy Swelling Verified 01/12/18 11:39 [From Librax (with methscopolamine)] clidinium bromide Allergy Swelling Verified 01/12/18 11:39 [From Librax (with clidinium)] methylscopolamine nitrate Allergy Swelling Verified 01/12/18 11:39 [From Librax (with methscopolamine)] Home Meds: Home Meds Cyanocobalamin (Vitamin B-12) [Vitamin B-12] 1 ml INJECT .[id number] 01/19/16 [ History] Ferrous Sulfate 325 mg PO DAILY 01/19/16 [History] HCTZ/Triamterene [Maxzide 25-37.5 MG] 2 each PO DAILY 01/19/16 [History] Multivitamin [Multiple Vitamins] 1 each PO DAILY 01/19/16 [History] Omeprazole Magnesium [Prilosec Otc] 20 mg PO BID 01/19/16 [History] PARoxetine [Paxil] 30 mg PO DAILY 01/19/16 [History] Potassium Chloride [Klor-Con 10] 10 meq PO DAILY 01/19/16 [History] Losartan Potassium 50 mg PO DAILY 01/25/19 [History] Past Medical History HEENT History: Reports: Allergic Rhinitis, Cataract, Impaired Vision Cardiovascular History: Reports: Heart Murmur, High Cholesterol, Hypertension Respiratory History: Reports: Sleep Apnea Gastrointestinal History: Reports: GERD, GI Bleed, Other (See Below) Other Gastrointestinal History: Peptic ulcer [employer] HEL[employer] History: Reports: , Spontaneous Musculoskeletal History: Reports: Fracture, Fibromyalgia, Osteoarthritis, Osteoporosis Psychiatric History: Reports: Depression Endocrine/Metabolic History: Reports: Vitamin D Deficiency Hematologic History: Reports: Anemia, Blood Transfusion(s) Oncologic (Cancer) History: Reports: Cervix - Infectious Disease History Infectious Disease History: Reports: Chicken Pox, Measles, Mumps, Scarlet Fever - Past Surgical History Head Surgeries/Procedures: Reports: None GI Surgical History: Reports: Appendectomy, Bariatric Procedure, Cholecystectomy , EGD, Hernia, Inguinal Endocrine Surgical History: Reports: None Neurological Surgical History: Reports: None Musculoskeletal Surgical History: Reports: Arthroscopic Procedure, Hip Replacement Dermatological Surgical History: Reports: None Social & Family History - Family History Family Medical History: Noncontributory - Tobacco Use Smoking Status *Q: Heavy Tobacco Smoker Years of Tobacco use: 50 Packs/Tins Daily: 0.2 - Caffeine Use Caffeine Use: Reports: Coffee - Recreational Drug Use Recreational Drug Use: No ED ROS GENERAL - Review of Systems Review Of Systems: See Below Constitutional: Reports: Fever, Chills, Weakness HEENT: Reports: No Symptoms Respiratory: Reports: No Symptoms Cardiovascular: Reports: No Symptoms GI/Abdominal: Reports: No Symptoms : Reports: Dysuria Neurological: Reports: No Symptoms ED EXAM, SEPSIS - Physical Exam Exam: See Below Text/Narrative:: General: Elderly female, ill-appearing, alert and oriented x3 HEENT: head is atraumatic normocephalic, eyes pupils equal round reactive to light, sclera clear no conjunctivitis appreciated. Ears tympanic membranes clear and guido landmarks and light reflex are present bilaterally canals are clear. Nose no septal deviation, nares are clear, no blood present. Mouth mucosa is dry and red no erythema or exudate noted in soft palate, tongue is midline uvula is midline, dentures in place. Neck: Supple no thyromegaly no tracheal deviation. Nodes: Cervical nodes subclavicular nodes nontender no palpable lymphadenopathy noted. Lungs: clear to auscultation bilaterally with symmetrical respirations, no adventitious noise appreciated. CV: Regular rate and rhythm S1 and S2 appreciated no murmurs rubs or gallops noted. Abdomen: Soft, nontender, no palpable masses or organomegaly appreciated, no distention no guarding bowel sounds are present, . Neuro: GCS 15 Skin: Warm and dry, intact Extremities: No lower extremity edema appreciated, Course - Vital Signs Last Recorded V/S: Last Vital Signs Temp 100.4 F 01/25/19 12:35 Pulse 91 01/25/19 13:27 Resp 30 H 01/25/19 13:27 BP 145/80 H 01/25/19 13:27 Pulse Ox 93 L 01/25/19 13:27 - Orders/Labs/Meds Orders: Active Orders 24 hr Category Date Time Status RT Aerosol Therapy [RC] ASDIRECTED Care 01/25/19 11:50 Active Vital Signs [RC] Q1H Care 01/25/19 09:56 Active Vital Signs [RC] Q1H Care 01/25/19 10:51 Active CULTURE BLOOD [BC] Urgent Lab 01/25/19 10:00 Received CULTURE BLOOD [BC] Urgent Lab 01/25/19 10:06 Received Iopamidol [Isovue-370 (76%)] Med 01/25/19 12:00 Active 100 ml IV . DIRECTED Piperacillin/Tazobactam [Zosyn] 4.5 gm Med 01/25/19 11:15 Active Sodium Chloride 0.9% [Normal Saline] 100 ml IV Q6H Sodium Chloride 0.9% [Normal Saline] 100 ml Med 01/25/19 12:00 Active IV ASDIRECTED Blood Culture x2 Reflex Set [OM.PC] Urgent Oth 01/25/19 09:56 Ordered Blood Culture x2 Reflex Set [OM.PC] Urgent Oth 01/25/19 10:51 Ordered Medication Orders Piperacillin Sod/Tazobactam (Sod 4.5 gm/ Sodium Chloride) 100 mls @ 200 mls/hr IV Q6H [facility] Last Admin: 01/25/19 11:23 Dose: 200 mls/hr Sodium Chloride (Normal Saline) 100 mls @ 3 mls/sec IV ASDIRECTED [facility]LENI Last Admin: 01/25/19 12:23 Dose: 3 mls/sec Iopamidol (Isovue-370 (76%)) 100 ml IV . DIRECTED [facility] Last Admin: 01/25/19 12:24 Dose: 100 ml Labs: Laboratory Tests 01/25/19 01/25/19 01/25/19 Range/Units 10:00 10:00 10:00 WBC 5.1 (4.5-11.0) K/uL RBC 4.93 (3.30-5.50) M/uL Hgb 15.4 H D (12.0-15.0) g/dL Hct 45.4 (36.0-48.0) % MCV 92 (80-98) fL MCH 31 (27-31) pg MCHC 34 (32-36) % Plt Count 47 L (150-400) K/uL Add Manual Diff Yes Neutrophils % (Manual) 75 H (36-66) % Band Neutrophils % 14 H (5-11) % Lymphocytes % (Manual) 6 L (24-44) % Monocytes % (Manual) 5 (2-6) % Sodium 126 L (140-148) mmol/L Potassium 2.8 L* (3.6-5.2) mmol/L Chloride 86 L (100-108) mmol/L Carbon Dioxide 30 (21-32) mmol/L Anion Gap 12.8 (5.0-14.0) mmol/L BUN 14 (7-18) mg/dL Creatinine 0.8 (0.6-1.0) mg/dL Est Cr Clr Drug Dosing 40.96 mL/min Estimated GFR (MDRD) > 60 (>60) Glucose 103 (74-106) mg/dL Lactic Acid 2.6 H (0.4-2.0) mmol/L Calcium 9.0 (8.5-10.1) mg/dL Total Bilirubin 0.9 D (0.2-1.0) mg/dL AST 152 H D (15-37) U/L ALT 81 H (12-78) U/L Alkaline Phosphatase 108 (46-116) U/L Troponin I (0.000-0.056) ng/mL C-Reactive Protein 20.36 H (0.0-0.3) mg/dL Total Protein 6.9 (6.4-8.2) g/dL Albumin 3.0 L (3.4-5.0) g/dL Globulin 3.9 H (2.3-3.5) g/dL Albumin/Globulin Ratio 0.8 L (1.2-2.2) Procalcitonin 0.81 ng/mL Urine Color (YELLOW) Urine Appearance (CLEAR) Urine pH (5.0-8.0) Ur Specific [place] (1.008-1.030) Urine Protein (NEGATIVE) mg/dL Urine Glucose (UA) (NEGATIVE) mg/dL Urine Ketones (NEGATIVE) mg/dL Urine Occult Blood (NEGATIVE) Urine Nitrite (NEGATIVE) Urine Bilirubin (NEGATIVE) Urine Urobilinogen (0.2-1.0) EU/dL Ur Leukocyte Esterase (NEGATIVE) Urine RBC (0-5) Urine WBC (0-5) Ur Epithelial Cells Amorphous Sediment Urine Bacteria Urine Mucus 01/25/19 01/25/19 Range/Units 10:00 10:59 WBC (4.5-11.0) K/uL RBC (3.30-5.50) M/uL Hgb (12.0-15.0) g/dL Hct (36.0-48.0) % MCV (80-98) fL MCH (27-31) pg MCHC (32-36) % Plt Count (150-400) K/uL Add Manual Diff Neutrophils % (Manual) (36-66) % Band Neutrophils % (5-11) % Lymphocytes % (Manual) (24-44) % Monocytes % (Manual) (2-6) % Sodium (140-148) mmol/L Potassium (3.6-5.2) mmol/L Chloride (100-108) mmol/L Carbon Dioxide (21-32) mmol/L Anion Gap (5.0-14.0) mmol/L BUN (7-18) mg/dL Creatinine (0.6-1.0) mg/dL Est Cr Clr Drug Dosing mL/min Estimated GFR (MDRD) (>60) Glucose (74-106) mg/dL Lactic Acid (0.4-2.0) mmol/L Calcium (8.5-10.1) mg/dL Total Bilirubin (0.2-1.0) mg/dL AST (15-37) U/L ALT (12-78) U/L Alkaline Phosphatase (46-116) U/L Troponin I 0.042 (0.000-0.056) ng/mL C-Reactive Protein (0.0-0.3) mg/dL Total Protein (6.4-8.2) g/dL Albumin (3.4-5.0) g/dL Globulin (2.3-3.5) g/dL Albumin/Globulin Ratio (1.2-2.2) Procalcitonin ng/mL Urine Color Yellow (YELLOW) Urine Appearance Slightly cloudy A (CLEAR) Urine pH 6.5 (5.0-8.0) Ur Specific [place] 1.025 (1.008-1.030) Urine Protein 100 H (NEGATIVE) mg/dL Urine Glucose (UA) Negative (NEGATIVE) mg/dL Urine Ketones 15 H (NEGATIVE) mg/dL Urine Occult Blood Moderate H (NEGATIVE) Urine Nitrite Negative (NEGATIVE) Urine Bilirubin Negative (NEGATIVE) Urine Urobilinogen 2.0 H (0.2-1.0) EU/dL Ur Leukocyte Esterase Negative (NEGATIVE) Urine RBC 0-5 (0-5) Urine WBC 0-5 (0-5) Ur Epithelial Cells Rare Amorphous Sediment Not seen Urine Bacteria Moderate Urine Mucus Not seen Meds: Medications Generic Name Dose Route Start Last Admin Trade Name Freq PRN Reason Stop Dose Admin Piperacillin Sod/Tazobactam 100 mls @ 200 mls/hr 01/25/19 11:15 01/25/19 11: 23 Sod 4.5 gm/ Sodium Chloride IV 200 mls/hr Q6H MARLENI Administration Sodium Chloride 100 mls @ 3 mls/sec 01/25/19 12:00 01/25/19 12:23 Normal Saline IV 3 mls/sec ASDIRECTED MARLENI Administration Iopamidol 100 ml 01/25/19 12:00 01/25/19 12:24 Isovue-370 (76%) IV 100 ml . DIRECTED MARLENI Administration Discontinued Medications Generic Name Dose Route Start Last Admin Trade Name Freq PRN Reason Stop Dose Admin Albuterol/Ipratropium 3 ml 01/25/19 11:50 01/25/19 12:32 Duoneb 3.0-0.5 Mg/3 Ml NEB 01/25/19 11:51 3 ml ONETIME ONE Administration Lactated Ringer's 1,000 mls @ 999 mls/hr 01/25/19 10:00 01/25/19 10:03 Ringers, Lactated IV 999 mls/hr ASDIRECTED MARLENI Administration Lactated Ringer's 1,000 mls @ 999 mls/hr 01/25/19 10:57 01/25/19 11:03 Ringers, Lactated IV 01/25/19 11:57 999 mls/hr BOLUS ONE Administration Potassium Chloride 40 meq 01/25/19 10:49 01/25/19 11:01 Klor-Con M20 PO 01/25/19 10:50 40 meq ONETIME ONE Administration Sodium Chloride 10 ml 01/25/19 11:57 01/25/19 12:23 Saline Flush FLUSH 01/25/19 11:58 10 ml ONETIME ONE Administration Departure - Departure Time of Disposition: 13:54 Disposition: Home, Self-Care 01 Condition: Fair Clinical Impression: UTI (urinary tract infection) Qualifiers: Urinary tract infection type: acute cystitis Hematuria presence: without hematuria Qualified Code(s): N30.00 - Acute cystitis without hematuria - Discharge Information Referrals: Wil Jaeger MD [Primary Care Provider] - Forms: ED Department Discharge - My Orders Last 24 Hours: My Active Orders 01/25/19 09:56 Vital Signs [RC] Q1H Blood Culture x2 Reflex Set [OM.PC] Urgent 01/25/19 10:00 CULTURE BLOOD [BC] Urgent 01/25/19 10:06 CULTURE BLOOD [BC] Urgent 01/25/19 10:51 Vital Signs [RC] Q1H Blood Culture x2 Reflex Set [OM.PC] Urgent 01/25/19 11:15 Piperacillin/Tazobactam [Zosyn] 4.5 gm Sodium Chloride 0.9% [Normal Saline] 100 ml IV Q6H 01/25/19 11:50 RT Aerosol Therapy [RC] ASDIRECTED 01/25/19 12:00 Iopamidol [Isovue-370 (76%)] 100 ml IV . DIRECTED Sodium Chloride 0.9% [Normal Saline] 100 ml IV ASDIRECTED - Assessment/Plan Last 24 Hours: My Active Orders 01/25/19 09:56 Vital Signs [RC] Q1H Blood Culture x2 Reflex Set [OM.PC] Urgent 01/25/19 10:00 CULTURE BLOOD [BC] Urgent 01/25/19 10:06 CULTURE BLOOD [BC] Urgent 01/25/19 10:51 Vital Signs [RC] Q1H Blood Culture x2 Reflex Set [OM.PC] Urgent 01/25/19 11:15 Piperacillin/Tazobactam [Zosyn] 4.5 gm Sodium Chloride 0.9% [Normal Saline] 100 ml IV Q6H 01/25/19 11:50 RT Aerosol Therapy [RC] ASDIRECTED 01/25/19 12:00 Iopamidol [Isovue-370 (76%)] 100 ml IV . DIRECTED Sodium Chloride 0.9% [Normal Saline] 100 ml IV ASDIRECTED Plan: Assessment Acuity = acute Site and laterality = urinary tract infection complicated patient known history of dyslipidemia and hypertension Etiology = secondary bacterial cause Manifestations = fever Location of injury = Home Lab values = potassium low 2.8 consistent hypokalemia lactic acid elevated 2.6 consistent lactic acidosis AST elevated 150 to AOT elevated 81 consistent elevated liver enzymes troponin normal range 0.042 unclear significance , CRP elevated 20.36 pro calcitonin elevated 0.81 urinalysis reveals moderate amount of bacteria chest x-ray shows old fractures on the left side otherwise no acute process CT scan shows no pulmonary embolism no infiltrate Plan called and discussed the case with hospitalist utilization review specialist he agreed to evaluate the patient in the ED at 13:30, blood cultures and urine cultures are pending antibiotics of Zosyn initiated This note was dictated using [employer] voice recognition software please call with any questions on syntax or grammar.
--- NOTE | 2019-01-25 10:39 | CRLCR ---
INDICATION: Fever TECHNIQUE: AP portable chest x-ray. COMPARISON: Chest x-ray 01/13/2018. FINDINGS: Displaced healing, old, and/or acute multiple left rib fractures. Surgical clips right upper quadrant. Moderate crackle scoliosis. Rotator arthropathy both shoulders. Heart size normal. No focal infiltrate or consolidation in either lung. Mild opacity in the lungs may be related atelectasis or scarring. Mild ectasia of a aortic arch. Chest otherwise unremarkable with stable fibrotic change in the lung apices. Dictated by Alin Anaya MD @ Jan 25 2019 10:36AM Signed by Dr. Alin Anaya @ Jan 25 2019 10:38AM
[2019-01-25] MEDS ORDERED: Potassium Chloride 20 MEQ Tab.ER PO ONE (10:49)
[2019-01-25] MEDS ORDERED: Lactated Ringers 1,000 ML IV ONE (10:57)
[2019-01-25] MEDS ORDERED: Piperacillin/Tazobactam 4.5 GM in Sodium Chloride 0.9% 100 ML IV SCH ×3 (11:00→11:30)
[2019-01-25] MEDS ORDERED: Albuterol/Ipratropium 3.0-0.5 MG/3 ML Neb Soln NEB ONE (11:50)
[2019-01-25] MEDS ORDERED: Sodium Chloride 0.9% 10 ML Syringe FLUSH ONE (11:57)
[2019-01-25] MEDS ORDERED: Iopamidol 755 Mg/ML 100 ML Bottle IV SCH (12:00)
[2019-01-25] MEDS ORDERED: Sodium Chloride 0.9% 100 ML IV SCH (12:00)
--- NOTE | 2019-01-25 13:33 | CRLCT ---
HISTORY: Shortness of breath. TECHNIQUE: Intravenous contrast enhanced CT of the chest. 100 mL of Isovue-370 intravenous contrast was administered. COMPARISON: 01/12/2018. FINDINGS: There is no acute pulmonary embolism. No thoracic aortic aneurysm or dissection. Coronary arteriosclerotic vascular calcifications are present. No significant pericardial effusion. No enlarged mediastinal or hilar lymph nodes. No enlarged axillary lymph nodes. - Postinflammatory changes at the lung apices as before. There is peribronchial thickening bilaterally along with partial bronchial opacification. This may relate to bronchitis. No consolidation or focal edema. There is no pneumothorax or pleural effusion. - Degenerative changes of the spine, likely with diffuse idiopathic skeletal hyperostosis changes. There are several remote healed with mild deformity left-sided rib fractures. - Postsurgical changes of gastric bypass. There is dilatation of biliary system extending beyond field of view, unchanged. IMPRESSION: 1. No acute pulmonary embolism. 2. No acute lung infiltrate. 3. Peribronchial thickening bilaterally which may relate to bronchitis changes. Dictated by Hossein Hardwick MD @ 01/25/2019 1:32:49 PM Please note that all CT scans at this facility use dose modulation, iterative reconstruction, and/or weight-based dosing when appropriate to reduce radiation dose to as low as reasonably achievable. Dictated by: Hossein Hardwick MD @ 01/25/2019 13:32:53 (Electronically Signed)
[2019-01-25] MEDS ORDERED: Acetaminophen 500 MG Tab PO ONE (14:19)
[2019-01-25] MEDS ORDERED: Doxycycline 100 MG in Sodium Chloride 0.9% 100 ML IV ONE ×2 (14:37→15:00)
[2019-01-25] MEDS ORDERED: Sodium Chloride 0.9% 1,000 ML IV SCH (14:45)
--- NOTE | 2019-01-25 14:51 | PCM.HP.2 ---
H&P History of Present Illness - General Date of Service: 01/25/19 Admit Problem/Dx: Admission Diagnosis/Problem Admission Diagnosis/Problem Human anaplasmosis Source of Information: Patient, Family, Provider History Limitations: Reports: No Limitations - History of Present Illness Initial Comments - Free Text/Narative: CC: I'm weak HPI: Beatrice presents presents with several days of progressive weakness, fatigue and myalgias as well as fevers. Symptoms started about 4 days ago when she said she felt like somebody punched her in the chest. She suddenly became very fatigued and had to go home and lay down. Since that time she has had progressive weakness and fatigue. She has had nausea much of the week and has had very little to eat or drink. She developed fever several days ago in these have been getting more intense. She's had multiple episodes of shaking chills as well. She has diffuse myalgias which are much worse than her usual fibromyalgia. No complaints of vomiting or diarrhea. No dysuria at this time. She feels a little bit short of breath but has not been coughing much. No obvious sick contacts that she is aware of. She does have multiple pets which are outside and could potentially have brought in to ticks. Workup in the emergency room concerning for sepsis with suspicion for anaplasmosis based on laboratory testing and symptoms. She has received some IV fluids and antibiotics. She has a significantly low potassium. She is extremely dehydrated. She will be admitted to the hospital for further management of sepsis presumed secondary to anaplasmosis. - Related Data Allergies/Adverse Reactions: Allergies Allergy/AdvReac Type Severity Reaction Status Date / Time aspirin Allergy Bleeding Verified 01/12/18 11:39 chlordiazepoxide Allergy Swelling Verified 01/12/18 11:39 [From Librax (with clidinium)] chlordiazepoxide HCl Allergy Swelling Verified 01/12/18 11:39 [From Librax (with methscopolamine)] clidinium bromide Allergy Swelling Verified 01/12/18 11:39 [From Librax (with clidinium)] methylscopolamine nitrate Allergy Swelling Verified 01/12/18 11:39 [From Librax (with methscopolamine)] Home Medications: Home Meds Cyanocobalamin (Vitamin B-12) [Vitamin B-12] 1 ml INJECT .[id number] 01/19/16 [ History] Ferrous Sulfate 325 mg PO DAILY 01/19/16 [History] HCTZ/Triamterene [Maxzide 25-37.5 MG] 2 each PO DAILY 01/19/16 [History] Multivitamin [Multiple Vitamins] 1 each PO DAILY 01/19/16 [History] Omeprazole Magnesium [Prilosec Otc] 20 mg PO BID 01/19/16 [History] PARoxetine [Paxil] 30 mg PO DAILY 01/19/16 [History] Potassium Chloride [Klor-Con 10] 10 meq PO DAILY 01/19/16 [History] Losartan Potassium 50 mg PO DAILY 01/25/19 [History] Past Medical History HEENT History: Reports: Allergic Rhinitis, Cataract, Impaired Vision Cardiovascular History: Reports: Heart Murmur, High Cholesterol, Hypertension Respiratory History: Reports: Sleep Apnea Gastrointestinal History: Reports: GERD, GI Bleed, Other (See Below) Other Gastrointestinal History: Peptic ulcer Genitourinary History: Reports: None [employer] History: Reports: , Spontaneous Musculoskeletal History: Reports: Fracture, Fibromyalgia, Osteoarthritis, Osteoporosis Psychiatric History: Reports: Depression Endocrine/Metabolic History: Reports: Vitamin D Deficiency Hematologic History: Reports: Anemia, Blood Transfusion(s) Oncologic (Cancer) History: Reports: Cervix - Infectious Disease History Infectious Disease History: Reports: Chicken Pox, Measles, Mumps, Scarlet Fever - Past Surgical History Head Surgeries/Procedures: Reports: None GI Surgical History: Reports: Appendectomy, Bariatric Procedure, Cholecystectomy , EGD, Hernia, Inguinal Endocrine Surgical History: Reports: None Neurological Surgical History: Reports: None Musculoskeletal Surgical History: Reports: Arthroscopic Procedure, Hip Replacement Dermatological Surgical History: Reports: None Social & Family History - Family History Family Medical History: Noncontributory - Tobacco Use Smoking Status *Q: Heavy Tobacco Smoker Years of Tobacco use: 50 Packs/Tins Daily: 0.2 - Caffeine Use Caffeine Use: Reports: Coffee - Alcohol Use Alcohol Use History: No - Recreational Drug Use Recreational Drug Use: No H&P Review of Systems - Review of Systems: Review Of Systems: See Below Free Text/Narrative: A complete 12 point review of systems was obtained. Pertinent positives and negatives are noted in the history of present illness. All other systems were reviewed and were negative except as noted. Exam - Exam Exam: See Below - Vital Signs Vital Signs: Last Vital Signs Temp 38.6 C H 01/25/19 13:57 Pulse 89 01/25/19 14:29 Resp 30 H 01/25/19 14:29 BP 161/87 H 01/25/19 14:29 Pulse Ox 93 L 01/25/19 13:57 Weight: 49.895 kg - Exam Quality Assessment: Supplemental Oxygen General: Alert, Oriented, Cooperative, Mild Distress, Lethargic HEENT: Conjunctiva Clear. No: Mucosa Moist & [place] (dry), Scleral Icterus Neck: Supple, Trachea Midline. No: Lymphadenopathy Lungs: Normal Respiratory Effort, Crackles (few both bases) Cardiovascular: Regular Rate, Regular Rhythm, Systolic Murmur GI/Abdominal Exam: Normal Bowel Sounds, Soft, Non-Tender, No Distention Extremities: No Pedal Edema. No: Increased Warmth Peripheral Pulses: 2+: Dorsalis Pedis (L), Dorsalis Pedis (R) Skin: Warm, Dry. No: Rash, [place] Neuro Extensive - Mental Status: Alert, Oriented x3, Nl Response to Commands Neuro Extensive - Motor, Sensory, Reflexes: No: Dysarthria, Abnormal Motor, Tremor Psychiatric: Alert, Normal Affect - Patient Data Lab Results Last 24 hrs: Laboratory Results - last 24 hr 01/25/19 01/25/19 01/25/19 Range/Units 10:00 10:00 10:00 WBC 5.1 (4.5-11.0) K/uL RBC 4.93 (3.30-5.50) M/uL Hgb 15.4 H D (12.0-15.0) g/dL Hct 45.4 (36.0-48.0) % MCV 92 (80-98) fL MCH 31 (27-31) pg MCHC 34 (32-36) % Plt Count 47 L (150-400) K/uL Add Manual Diff Yes Neutrophils % (Manual) 75 H (36-66) % Band Neutrophils % 14 H (5-11) % Lymphocytes % (Manual) 6 L (24-44) % Monocytes % (Manual) 5 (2-6) % Sodium 126 L (140-148) mmol/L Potassium 2.8 L* (3.6-5.2) mmol/L Chloride 86 L (100-108) mmol/L Carbon Dioxide 30 (21-32) mmol/L Anion Gap 12.8 (5.0-14.0) mmol/L BUN 14 (7-18) mg/dL Creatinine 0.8 (0.6-1.0) mg/dL Est Cr Clr Drug Dosing 40.96 mL/min Estimated GFR (MDRD) > 60 (>60) Glucose 103 (74-106) mg/dL Lactic Acid 2.6 H (0.4-2.0) mmol/L Calcium 9.0 (8.5-10.1) mg/dL Total Bilirubin 0.9 D (0.2-1.0) mg/dL AST 152 H D (15-37) U/L ALT 81 H (12-78) U/L Alkaline Phosphatase 108 (46-116) U/L Troponin I (0.000-0.056) ng/mL C-Reactive Protein 20.36 H (0.0-0.3) mg/dL Total Protein 6.9 (6.4-8.2) g/dL Albumin 3.0 L (3.4-5.0) g/dL Globulin 3.9 H (2.3-3.5) g/dL Albumin/Globulin Ratio 0.8 L (1.2-2.2) Procalcitonin 0.81 ng/mL Urine Color (YELLOW) Urine Appearance (CLEAR) Urine pH (5.0-8.0) Ur Specific [place]iller (1.008-1.030) Urine Protein (NEGATIVE) mg/dL Urine Glucose (UA) (NEGATIVE) mg/dL Urine Ketones (NEGATIVE) mg/dL Urine Occult Blood (NEGATIVE) Urine Nitrite (NEGATIVE) Urine Bilirubin (NEGATIVE) Urine Urobilinogen (0.2-1.0) EU/dL Ur Leukocyte Esterase (NEGATIVE) Urine RBC (0-5) Urine WBC (0-5) Ur Epithelial Cells Amorphous Sediment Urine Bacteria Urine Mucus 01/25/19 01/25/19 Range/Units 10:00 10:59 WBC (4.5-11.0) K/uL RBC (3.30-5.50) M/uL Hgb (12.0-15.0) g/dL Hct (36.0-48.0) % MCV (80-98) fL MCH (27-31) pg MCHC (32-36) % Plt Count (150-400) K/uL Add Manual Diff Neutrophils % (Manual) (36-66) % Band Neutrophils % (5-11) % Lymphocytes % (Manual) (24-44) % Monocytes % (Manual) (2-6) % Sodium (140-148) mmol/L Potassium (3.6-5.2) mmol/L Chloride (100-108) mmol/L Carbon Dioxide (21-32) mmol/L Anion Gap (5.0-14.0) mmol/L BUN (7-18) mg/dL Creatinine (0.6-1.0) mg/dL Est Cr Clr Drug Dosing mL/min Estimated GFR (MDRD) (>60) Glucose (74-106) mg/dL Lactic Acid (0.4-2.0) mmol/L Calcium (8.5-10.1) mg/dL Total Bilirubin (0.2-1.0) mg/dL AST (15-37) U/L ALT (12-78) U/L Alkaline Phosphatase (46-116) U/L Troponin I 0.042 (0.000-0.056) ng/mL C-Reactive Protein (0.0-0.3) mg/dL Total Protein (6.4-8.2) g/dL Albumin (3.4-5.0) g/dL Globulin (2.3-3.5) g/dL Albumin/Globulin Ratio (1.2-2.2) Procalcitonin ng/mL Urine Color Yellow (YELLOW) Urine Appearance Slightly cloudy A (CLEAR) Urine pH 6.5 (5.0-8.0) Ur Specific [place]iller 1.025 (1.008-1.030) Urine Protein 100 H (NEGATIVE) mg/dL Urine Glucose (UA) Negative (NEGATIVE) mg/dL Urine Ketones 15 H (NEGATIVE) mg/dL Urine Occult Blood Moderate H (NEGATIVE) Urine Nitrite Negative (NEGATIVE) Urine Bilirubin Negative (NEGATIVE) Urine Urobilinogen 2.0 H (0.2-1.0) EU/dL Ur Leukocyte Esterase Negative (NEGATIVE) Urine RBC 0-5 (0-5) Urine WBC 0-5 (0-5) Ur Epithelial Cells Rare Amorphous Sediment Not seen Urine Bacteria Moderate Urine Mucus Not seen Result Diagrams: 01/25/19 10:00 01/25/19 10:00 Cole Results Last 24 hrs: Microbiology 01/25/19 09:59 Influenza Type A Antigen Screen - Final Nasal Aspirate, Unspecified NEGATIVE INFLUENZA A VIRUS AG REFERENCE RANGE: NEGATIVE Influenza Type B Antigen Screen - Final NEGATIVE INFLUENZA B VIRUS AG REFERENCE RANGE: NEGATIVE Imaging Impressions Last 24 hrs: CXR - images personally reviewed - possible old scaring in the apices but otherwise clear. Heart size normal. No mass or effusion. Old left sided rib fractures with displacement. CT chest - no PE. No infiltrate. Mild peribronchial thickening *Q Meaningful Use (ADM) - VTE Risk Assess *Q Each Risk Factor Represents 1 Point: Sepsis Total Score 1 Point Risk Factors: 1 Each Risk Factor Represents 2 Points: None Total Score 2 Point Risk Factors: 0 Each Risk Factor Represents 3 Points: Age 75 Years or Greater Total Score 3 Point Risk Factors: 3 Each Risk Factor Represents 5 Points: None Total Score 5 Point Risk Factors: 0 Venous Thromboembolism Risk Factor Score *Q: 4 - Problem List (1) Anaplasmosis SNOMED Code(s): 732203417 ICD Code: A77.49 - OTHER EHRLICHIOSIS Status: Acute Current Visit: Yes (2) Sepsis SNOMED Code(s): 17472767 ICD Code: A41.9 - SEPSIS, UNSPECIFIED ORGANISM Status: Acute Current Visit: Yes Qualifiers: Sepsis type: sepsis due to unspecified organism Sepsis acute organ dysfunction status: without acute organ dysfunction Qualified Code(s): A41.9 - Sepsis, unspecified organism (3) Hypokalemia SNOMED Code(s): 75674646 ICD Code: E87.6 - HYPOKALEMIA Status: Acute Current Visit: Yes Problem List Initiated/Reviewed/Updated: Yes Orders Last 24hrs: Active Orders 24 hr Category Date Time Status Patient Status Manage Transfer [TRANSFER] Routine ADT 01/25/19 14:39 Ordered RT Aerosol Therapy [RC] ASDIRECTED Care 01/25/19 11:50 Active Vital Signs [RC] Q1H Care 01/25/19 09:56 Active Vital Signs [RC] Q1H Care 01/25/19 10:51 Active CULTURE BLOOD [BC] Urgent Lab 01/25/19 10:00 Received CULTURE BLOOD [BC] Urgent Lab 01/25/19 10:06 Received Doxycycline [Vibramycin] 100 mg Med 01/25/19 14:37 Active Sodium Chloride 0.9% [Normal Saline] 100 ml IV ONETIME Iopamidol [Isovue-370 (76%)] Med 01/25/19 12:00 Active 100 ml IV . DIRECTED Piperacillin/Tazobactam [Zosyn] 4.5 gm Med 01/25/19 11:15 Active Sodium Chloride 0.9% [Normal Saline] 100 ml IV Q6H Sodium Chloride 0.9% [Normal Saline] 1,000 ml Med 01/25/19 14:45 Active IV ASDIRECTED Sodium Chloride 0.9% [Normal Saline] 100 ml Med 01/25/19 12:00 Active IV ASDIRECTED Blood Culture x2 Reflex Set [OM.PC] Urgent Oth 01/25/19 09:56 Ordered Blood Culture x2 Reflex Set [OM.PC] Urgent Oth 01/25/19 10:51 Ordered Resuscitation Status Routine Resus Stat 01/25/19 14:40 Ordered Medication Orders Piperacillin Sod/Tazobactam (Sod 4.5 gm/ Sodium Chloride) 100 mls @ 200 mls/hr IV Q6H [facility] Last Admin: 01/25/19 11:23 Dose: 200 mls/hr Sodium Chloride (Normal Saline) 100 mls @ 3 mls/sec IV ASDIRECTED [facility] Last Admin: 01/25/19 12:23 Dose: 3 mls/sec Doxycycline Hyclate 100 mg/ (Sodium Chloride) 100 mls @ 100 mls/hr IV ONETIME ONE Stop: 01/25/19 15:36 Sodium Chloride (Normal Saline) 1,000 mls @ 999 mls/hr IV ASDIRECTED [facility] Stop: 01/25/19 15:46 Last Admin: 01/25/19 14:45 Dose: 999 mls/hr Iopamidol (Isovue-370 (76%)) 100 ml IV . DIRECTED [facility] Last Admin: 01/25/19 12:24 Dose: 100 ml Assessment/Plan Comment:: ASSESSMENT AND PLAN - Suspected anaplasmosis with sepsis - she is tachycardic and has an elevated lactic acid level. She is very lethargic. Laboratory studies including borderline leukocytosis, thrombocytopenia, elevated AST and ALT as well as symptoms and high fever very suggestive of acute anaplasmosis. No other obvious source for infection at this point other than possibly a mild urinary tract infection. CRP elevation quite impressive. Low Na+ 2/2 hypovolemia. -Doxycycline for presumed tickborne illness -Continue Pip/Tazo overnight to cover additional pathogens until cultures have had more time to incubate -Follow-up urine and blood cultures -Additional IV fluids for management of sepsis -Repeat lactic acid level Hypokalemia - Significant hypokalemia noted on laboratory studies, likely secondary to poor intake. She has received some supplementation in the emergency room. -Potassium rider -Potassium containing IV fluids -Recheck later this evening and replace as indicated Essential hypertension - Antihypertensive medications will be on hold until we see which direction blood pressure goes with sepsis. Fibromyalgia - stable at this time. Maintenance issues - - DVT prophylaxis - Mechanical with thrombocytopenia - GI prophylaxis - PPI - Nutrition - Regular diet as tolerated - Hinojosa catheter - Not indicated CODE STATUS - Full code Admission justification - This patient will be admitted for inpatient services and is medically appropriate meeting medical necessity for inpatient admission as outlined in my documentation. I reasonably expect the patient will require inpatient services that span a period time over 2 midnights. I reasonably expect this patient to be discharged or transferred within 96 hours [facility]. Disposition - I would anticipate discharge home after the hospital stay Primary care physician - Dr Mil Hunt M.D. - Mortality Measure Prognosis:: Good
[2019-01-25] MEDS ORDERED: Acetaminophen 325 MG Tab PO PRN (15:04)
[2019-01-25] MEDS ORDERED: Magnesium Hydroxide 400 MG/5 ML Susp 30 ML Cup PO PRN (15:04)
[2019-01-25] MEDS ORDERED: Albuterol 0.083% 2.5 MG/3 ML Neb Soln NEB PRN (15:04)
[2019-01-25] MEDS ORDERED: Ondansetron 4 MG Tab.DIS PO PRN (15:04)
[2019-01-25] MEDS ORDERED: Ondansetron 4 MG/2 ML SDV IV PRN (15:04)
[2019-01-25] MEDS ORDERED: Melatonin 3 MG Tab PO PRN (15:04)
[2019-01-25] MEDS ORDERED: oxyCODONE 5 MG Tab PO PRN (15:04)
[2019-01-25] MEDS ORDERED: Potassium Chloride 20 MEQ, Lidocaine 1% 2 ML in Sodium Chloride 0.9% 100 ML IV ONE (15:45)
[2019-01-25] MEDS: Piperacillin/Tazobactam/Dext 3.375 GM in Premix Bag 1 BAG IV SCH ×2 (18:14→23:18)
[2019-01-25] MEDS: NS + KCl 20mEq/L 1,000 ML IV SCH (19:56)
[2019-01-25] MEDS ORDERED: Potassium Chloride 100 ML ONE (20:48)
[2019-01-25] MEDS: Potassium Chloride 20 MEQ in Premix Bag 1 BAG IV SCH (20:54)
[2019-01-25] MEDS: Lactobacillus Rhamnosus GG (Probiotic) Cap PO SCH (20:58)
[2019-01-25] MEDS: Magnesium Sulfate/Water 2 GM in Premix Bag 1 BAG IV SCH (21:51)
[2019-01-26] MEDS: Potassium Chloride 20 MEQ in Premix Bag 1 BAG IV SCH (00:02)
[2019-01-26] MEDS: Doxycycline 100 MG in Sodium Chloride 0.9% 100 ML IV SCH ×2 (02:19→15:16)
[2019-01-26] MEDS: Magnesium Sulfate/Water 2 GM in Premix Bag 1 BAG IV SCH ×4 (03:31→14:49)
[2019-01-26] MEDS: Piperacillin/Tazobactam/Dext 3.375 GM in Premix Bag 1 BAG IV SCH (04:36)
[2019-01-26] MEDS: NS + KCl 20mEq/L 1,000 ML IV SCH ×2 (04:37→18:13)
[2019-01-26] MEDS ORDERED: PAROXETINE 30 MG PO SCH (09:00)
[2019-01-26] MEDS: Lactobacillus Rhamnosus GG (Probiotic) Cap PO SCH ×2 (09:23→20:54)
[2019-01-26] MEDS: Pantoprazole 40 MG Tab.CR PO SCH (09:23)
[2019-01-26] MEDS: PARoxetine 20 MG Tab PO SCH (09:24)
--- NOTE | 2019-01-26 09:59 | PCM.PN ---
- General Info Date of Service: 01/26/19 Subjective Update: There were no acute events overnight following admission. Potassium level remains low but has been improving. Heart rate and blood pressure have improved. Patient is more alert and interactive today but still sleepy. Nausea has resolved. Myalgias are better today. White count and platelets are stable compared to yesterday. Functional Status: Reports: Pain Controlled - Review of Systems General: Reports: Weakness, Fatigue. Denies: Fever Gastrointestinal: Denies: Nausea - Patient Data Vitals - Most Recent: Last Vital Signs Temp 37.0 C 01/26/19 07:00 Pulse 67 01/26/19 07:00 Resp 20 01/26/19 07:00 BP 107/63 01/26/19 07:00 Pulse Ox 97 01/26/19 07:00 Weight - Most Recent: 49.895 kg I&O - Last 24 Hours: Intake & Output 01/25/19 01/26/19 01/26/19 22:59 06:59 14:59 Intake Total 1940 Balance 1940 Lab Results Last 24 Hours: Laboratory Results - last 24 hr 01/25/19 01/25/19 01/25/19 Range/Units 10:00 10:00 10:00 WBC 5.1 (4.5-11.0) K/uL RBC 4.93 (3.30-5.50) M/uL Hgb 15.4 H D (12.0-15.0) g/dL Hct 45.4 (36.0-48.0) % MCV 92 (80-98) fL MCH 31 (27-31) pg MCHC 34 (32-36) % Plt Count 47 L (150-400) K/uL Add Manual Diff Yes Neutrophils % (Manual) 75 H (36-66) % Band Neutrophils % 14 H (5-11) % Lymphocytes % (Manual) 6 L (24-44) % Monocytes % (Manual) 5 (2-6) % Sodium 126 L (140-148) mmol/L Potassium 2.8 L* (3.6-5.2) mmol/L Chloride 86 L (100-108) mmol/L Carbon Dioxide 30 (21-32) mmol/L Anion Gap 12.8 (5.0-14.0) mmol/L BUN 14 (7-18) mg/dL Creatinine 0.8 (0.6-1.0) mg/dL Est Cr Clr Drug Dosing 40.96 mL/min Estimated GFR (MDRD) > 60 (>60) Glucose 103 (74-106) mg/dL Lactic Acid 2.6 H (0.4-2.0) mmol/L Calcium 9.0 (8.5-10.1) mg/dL Magnesium (1.8-2.4) mg/dL Total Bilirubin 0.9 D (0.2-1.0) mg/dL AST 152 H D (15-37) U/L ALT 81 H (12-78) U/L Alkaline Phosphatase 108 (46-116) U/L Troponin I (0.000-0.056) ng/mL C-Reactive Protein 20.36 H (0.0-0.3) mg/dL Total Protein 6.9 (6.4-8.2) g/dL Albumin 3.0 L (3.4-5.0) g/dL Globulin 3.9 H (2.3-3.5) g/dL Albumin/Globulin Ratio 0.8 L (1.2-2.2) Procalcitonin 0.81 ng/mL Urine Color (YELLOW) Urine Appearance (CLEAR) Urine pH (5.0-8.0) Ur Specific [place] (1.008-1.030) Urine Protein (NEGATIVE) mg/dL Urine Glucose (UA) (NEGATIVE) mg/dL Urine Ketones (NEGATIVE) mg/dL Urine Occult Blood (NEGATIVE) Urine Nitrite (NEGATIVE) Urine Bilirubin (NEGATIVE) Urine Urobilinogen (0.2-1.0) EU/dL Ur Leukocyte Esterase (NEGATIVE) Urine RBC (0-5) Urine WBC (0-5) Ur Epithelial Cells Amorphous Sediment Urine Bacteria Urine Mucus 01/25/19 01/25/19 01/25/19 Range/Units 10:00 10:59 15:42 WBC (4.5-11.0) K/uL RBC (3.30-5.50) M/uL Hgb (12.0-15.0) g/dL Hct (36.0-48.0) % MCV (80-98) fL MCH (27-31) pg MCHC (32-36) % Plt Count (150-400) K/uL Add Manual Diff Neutrophils % (Manual) (36-66) % Band Neutrophils % (5-11) % Lymphocytes % (Manual) (24-44) % Monocytes % (Manual) (2-6) % Sodium (140-148) mmol/L Potassium (3.6-5.2) mmol/L Chloride (100-108) mmol/L Carbon Dioxide (21-32) mmol/L Anion Gap (5.0-14.0) mmol/L BUN (7-18) mg/dL Creatinine (0.6-1.0) mg/dL Est Cr Clr Drug Dosing mL/min Estimated GFR (MDRD) (>60) Glucose (74-106) mg/dL Lactic Acid 1.7 (0.4-2.0) mmol/L Calcium (8.5-10.1) mg/dL Magnesium (1.8-2.4) mg/dL Total Bilirubin (0.2-1.0) mg/dL AST (15-37) U/L ALT (12-78) U/L Alkaline Phosphatase (46-116) U/L Troponin I 0.042 (0.000-0.056) ng/mL C-Reactive Protein (0.0-0.3) mg/dL Total Protein (6.4-8.2) g/dL Albumin (3.4-5.0) g/dL Globulin (2.3-3.5) g/dL Albumin/Globulin Ratio (1.2-2.2) Procalcitonin ng/mL Urine Color Yellow (YELLOW) Urine Appearance Slightly cloudy A (CLEAR) Urine pH 6.5 (5.0-8.0) Ur Specific [place] 1.025 (1.008-1.030) Urine Protein 100 H (NEGATIVE) mg/dL Urine Glucose (UA) Negative (NEGATIVE) mg/dL Urine Ketones 15 H (NEGATIVE) mg/dL Urine Occult Blood Moderate H (NEGATIVE) Urine Nitrite Negative (NEGATIVE) Urine Bilirubin Negative (NEGATIVE) Urine Urobilinogen 2.0 H (0.2-1.0) EU/dL Ur Leukocyte Esterase Negative (NEGATIVE) Urine RBC 0-5 (0-5) Urine WBC 0-5 (0-5) Ur Epithelial Cells Rare Amorphous Sediment Not seen Urine Bacteria Moderate Urine Mucus Not seen 01/25/19 01/25/19 01/25/19 Range/Units 19:42 19:42 20:25 WBC (4.5-11.0) K/uL RBC (3.30-5.50) M/uL Hgb (12.0-15.0) g/dL Hct (36.0-48.0) % MCV (80-98) fL MCH (27-31) pg MCHC (32-36) % Plt Count (150-400) K/uL Add Manual Diff Neutrophils % (Manual) (36-66) % Band Neutrophils % (5-11) % Lymphocytes % (Manual) (24-44) % Monocytes % (Manual) (2-6) % Sodium (140-148) mmol/L Potassium 2.8 L* (3.6-5.2) mmol/L Chloride (100-108) mmol/L Carbon Dioxide (21-32) mmol/L Anion Gap (5.0-14.0) mmol/L BUN (7-18) mg/dL Creatinine (0.6-1.0) mg/dL Est Cr Clr Drug Dosing mL/min Estimated GFR (MDRD) (>60) Glucose (74-106) mg/dL Lactic Acid 1.7 (0.4-2.0) mmol/L Calcium (8.5-10.1) mg/dL Magnesium 1.3 L (1.8-2.4) mg/dL Total Bilirubin (0.2-1.0) mg/dL AST (15-37) U/L ALT (12-78) U/L Alkaline Phosphatase (46-116) U/L Troponin I (0.000-0.056) ng/mL C-Reactive Protein (0.0-0.3) mg/dL Total Protein (6.4-8.2) g/dL Albumin (3.4-5.0) g/dL Globulin (2.3-3.5) g/dL Albumin/Globulin Ratio (1.2-2.2) Procalcitonin ng/mL Urine Color (YELLOW) Urine Appearance (CLEAR) Urine pH (5.0-8.0) Ur Specific [place] (1.008-1.030) Urine Protein (NEGATIVE) mg/dL Urine Glucose (UA) (NEGATIVE) mg/dL Urine Ketones (NEGATIVE) mg/dL Urine Occult Blood (NEGATIVE) Urine Nitrite (NEGATIVE) Urine Bilirubin (NEGATIVE) Urine Urobilinogen (0.2-1.0) EU/dL Ur Leukocyte Esterase (NEGATIVE) Urine RBC (0-5) Urine WBC (0-5) Ur Epithelial Cells Amorphous Sediment Urine Bacteria Urine Mucus 01/26/19 01/26/19 Range/Units 04:30 04:30 WBC 5.0 (4.5-11.0) K/uL RBC 4.46 (3.30-5.50) M/uL Hgb 14.1 (12.0-15.0) g/dL Hct 42.1 (36.0-48.0) % MCV 94 (80-98) fL MCH 32 H (27-31) pg MCHC 34 (32-36) % Plt Count 37 L (150-400) K/uL Add Manual Diff Neutrophils % (Manual) (36-66) % Band Neutrophils % (5-11) % Lymphocytes % (Manual) (24-44) % Monocytes % (Manual) (2-6) % Sodium 134 L (140-148) mmol/L Potassium 3.5 L (3.6-5.2) mmol/L Chloride 99 L (100-108) mmol/L Carbon Dioxide 28 (21-32) mmol/L Anion Gap 10.5 (5.0-14.0) mmol/L BUN 12 (7-18) mg/dL Creatinine 0.6 (0.6-1.0) mg/dL Est Cr Clr Drug Dosing 59.89 mL/min Estimated GFR (MDRD) > 60 (>60) Glucose 78 (74-106) mg/dL Lactic Acid (0.4-2.0) mmol/L Calcium 8.2 L (8.5-10.1) mg/dL Magnesium (1.8-2.4) mg/dL Total Bilirubin (0.2-1.0) mg/dL AST (15-37) U/L ALT (12-78) U/L Alkaline Phosphatase (46-116) U/L Troponin I (0.000-0.056) ng/mL C-Reactive Protein (0.0-0.3) mg/dL Total Protein (6.4-8.2) g/dL Albumin (3.4-5.0) g/dL Globulin (2.3-3.5) g/dL Albumin/Globulin Ratio (1.2-2.2) Procalcitonin ng/mL Urine Color (YELLOW) Urine Appearance (CLEAR) Urine pH (5.0-8.0) Ur Specific [place] (1.008-1.030) Urine Protein (NEGATIVE) mg/dL Urine Glucose (UA) (NEGATIVE) mg/dL Urine Ketones (NEGATIVE) mg/dL Urine Occult Blood (NEGATIVE) Urine Nitrite (NEGATIVE) Urine Bilirubin (NEGATIVE) Urine Urobilinogen (0.2-1.0) EU/dL Ur Leukocyte Esterase (NEGATIVE) Urine RBC (0-5) Urine WBC (0-5) Ur Epithelial Cells Amorphous Sediment Urine Bacteria Urine Mucus Cole Results Last 24 Hours: Microbiology 01/25/19 09:59 Influenza Type A Antigen Screen - Final Nasal Aspirate, Unspecified NEGATIVE INFLUENZA A VIRUS AG REFERENCE RANGE: NEGATIVE Influenza Type B Antigen Screen - Final NEGATIVE INFLUENZA B VIRUS AG REFERENCE RANGE: NEGATIVE Med Orders - Current: Current Medications Acetaminophen (Tylenol) 650 mg PO Q4H PRN PRN Reason: Pain (Mild 1-3)/fever Albuterol (Proventil Neb Soln) 2.5 mg NEB Q4H PRN PRN Reason: Shortness Of Breath/wheezing Doxycycline Hyclate 100 mg/ (Sodium Chloride) 100 mls @ 100 mls/hr IV Q12H [facility] Last Admin: 01/26/19 02:19 Dose: 100 mls/hr Magnesium Sulfate 2 gm/ Premix 50 mls @ 12.5 mls/hr IV Q6H [facility] Stop: 01/26/19 19:44 Last Admin: 01/26/19 09:24 Dose: 12.5 mls/hr Lactobacillus Rhamnosus (Culturelle) 1 cap PO BID [facility] Last Admin: 01/26/19 09:23 Dose: 1 cap Magnesium Hydroxide (Milk Of Magnesia) 30 ml PO Q12H PRN PRN Reason: Constipation Melatonin (Melatonin) 9 mg PO BEDTIME PRN PRN Reason: sleep Ondansetron HCl (Zofran Odt) 4 mg PO Q6H PRN PRN Reason: Nausea able to take PO Ondansetron HCl (Zofran) 4 mg IV Q6H PRN PRN Reason: Nausea/Vomiting Oxycodone HCl (Oxycodone) 5 mg PO Q4H PRN PRN Reason: Pain (moderate 4-6) Pantoprazole Sodium (Protonix) 40 mg PO ACBREAKFAST [facility] Last Admin: 01/26/19 09:23 Dose: 40 mg Paroxetine HCl (Paxil) 30 mg PO DAILY [facility] Last Admin: 01/26/19 09:24 Dose: 30 mg Senna/Docusate Sodium (Senna Plus) 1 tab PO BID PRN PRN Reason: Constipation Discontinued Medications Acetaminophen (Tylenol Extra Strength) 1,000 mg PO ONETIME ONE Stop: 01/25/19 14:20 Last Admin: 01/25/19 14:28 Dose: 1,000 mg Albuterol/Ipratropium (Duoneb 3.0-0.5 Mg/3 Ml) 3 ml NEB ONETIME ONE Stop: 01/25/19 11:51 Last Admin: 01/25/19 12:32 Dose: 3 ml Lactated Ringer's (Ringers, Lactated) 1,000 mls @ 999 mls/hr IV ASDIRECTED [facility] Last Admin: 01/25/19 10:03 Dose: 999 mls/hr Lactated Ringer's (Ringers, Lactated) 1,000 mls @ 999 mls/hr IV BOLUS ONE Stop: 01/25/19 11:57 Last Admin: 01/25/19 11:03 Dose: 999 mls/hr Piperacillin Sod/Tazobactam (Sod 4.5 gm/ Sodium Chloride) 100 mls @ 200 mls/hr IV Q6H [facility] Last Admin: 01/25/19 11:23 Dose: 200 mls/hr Sodium Chloride (Normal Saline) 100 mls @ 3 mls/sec IV ASDIRECTED [facility] Last Admin: 01/25/19 12:23 Dose: 3 mls/sec Sodium Chloride (Normal Saline) 1,000 mls @ 999 mls/hr IV ASDIRECTED [facility] Stop: 01/25/19 15:46 Last Admin: 01/25/19 14:45 Dose: 999 mls/hr Doxycycline Hyclate 100 mg/ (Sodium Chloride) 100 mls @ 100 mls/hr IV ONETIME ONE Stop: 01/25/19 15:59 Last Admin: 01/25/19 15:07 Dose: 100 mls/hr Piperacillin/Tazobactam/ (Dextrose 3.375 gm/ Premix) 50 mls @ 100 mls/hr IV Q6H [facility] Last Admin: 01/26/19 04:36 Dose: 100 mls/hr Potassium Chloride 20 meq/Lidocaine HCl 2 ml/ Sodium Chloride 112 mls @ 56 mls/ hr IV ONETIME ONE Stop: 01/25/19 17:44 Last Admin: 01/25/19 16:09 Dose: 56 mls/hr Potassium Chloride/Sodium Chloride (Normal Saline With 20 Meq Kcl) 1,000 mls @ 125 mls/hr IV ASDIRECTED [facility] Last Admin: 01/26/19 04:37 Dose: 125 mls/hr Potassium Chloride 20 meq/ (Premix) 100 mls @ 50 mls/hr IV ONETIME [facility] Stop: 01/26/19 22:59 Last Admin: 01/26/19 00:02 Dose: 50 mls/hr Potassium Chloride (Kcl 20 Meq In Water 100 Ml) Confirm Administered Dose 100 mls @ as directed .ROUTE .STK-MED ONE Stop: 01/25/19 20:49 Last Admin: 01/26/19 00:03 Dose: Not Given Iopamidol (Isovue-370 (76%)) 100 ml IV . DIRECTED [facility] Last Admin: 01/25/19 12:24 Dose: 100 ml Lidocaine HCl (Xylocaine-Mpf 1%) 4 ml INJECT ONETIME [facility] Last Admin: 01/25/19 20:57 Dose: 4 ml Potassium Chloride (Klor-Con M20) 40 meq PO ONETIME ONE Stop: 01/25/19 10:50 Last Admin: 01/25/19 11:01 Dose: 40 meq Sodium Chloride (Saline Flush) 10 ml FLUSH ONETIME ONE Stop: 01/25/19 11:58 Last Admin: 01/25/19 12:23 Dose: 10 ml - Exam Quality Assessment: Supplemental Oxygen General: Alert, Oriented, Cooperative, No Acute Distress Lungs: Clear to Auscultation, Normal Respiratory Effort Cardiovascular: Regular Rate, Regular Rhythm GI/Abdominal Exam: Soft, No Distention Extremities: No Pedal Edema. No: Increased Warmth Skin: Warm, Dry Psy/Mental Status: Alert, Normal Affect - Problem List & Annotations (1) Anaplasmosis SNOMED Code(s): 056415344 Code(s): A77.49 - OTHER EHRLICHIOSIS Status: Acute Current Visit: Yes (2) Sepsis SNOMED Code(s): 36234326 Code(s): A41.9 - SEPSIS, UNSPECIFIED ORGANISM Status: Acute Current Visit : Yes Qualifiers: Sepsis type: sepsis due to unspecified organism Sepsis acute organ dysfunction status: without acute organ dysfunction Qualified Code(s): A41.9 - Sepsis, unspecified organism (3) Hypokalemia SNOMED Code(s): 10298845 Code(s): E87.6 - HYPOKALEMIA Status: Acute Current Visit: Yes - Problem List Review Problem List Initiated/Reviewed/Updated: Yes - My Orders Last 24 Hours: My Active Orders 01/25/19 14:40 Resuscitation Status Routine 01/25/19 15:04 Patient Status [ADT] Routine Antiembolic Devices [RC] .Routine Intake and Output [RC] QSHIFT Notify Provider Vital Signs [RC] ASDIRECTED Oxygen Therapy [RC] PRN RT Aerosol Therapy [RC] ASDIRECTED Up With Assistance [RC] ASDIRECTED VTE/DVT Education [RC] Per Unit Routine Vital Signs [RC] Q2H Acetaminophen [Tylenol] 650 mg PO Q4H PRN Albuterol [Proventil Neb Soln] 2.5 mg NEB Q4H PRN Docusate Sodium/Sennosides [Senna Plus] 1 tab PO BID PRN Magnesium Hydroxide [Milk of Magnesia] 30 ml PO Q12H PRN Melatonin 9 mg PO BEDTIME PRN NS + KCl 20mEq/L [Normal Saline with 20 mEq KCl] 1,000 ml IV ASDIRECTED Ondansetron [Zofran ODT] 4 mg PO Q6H PRN Ondansetron [Zofran] 4 mg IV Q6H PRN oxyCODONE 5 mg PO Q4H PRN Sequential Compression Device [OM.PC] Routine 01/25/19 21:00 Lactobacillus Rhamnosus GG [Culturelle] 1 cap PO BID 01/25/19 21:45 Magnesium Sulfate/Water [Magnesium Sulfate in Water Premix] 2 gm Premix Bag 1 bag IV Q6H 01/25/19 Dinner Regular Diet [DIET] 01/26/19 03:00 Doxycycline [Vibramycin] 100 mg Sodium Chloride 0.9% [Normal Saline] 100 ml IV Q12H 01/26/19 07:30 Pantoprazole [ProTONIX] 40 mg PO ACBREAKFAST 01/26/19 09:00 PARoxetine [Paxil] 30 mg PO DAILY 01/26/19 09:55 Potassium Chloride [Klor-Con M20] 40 meq PO ONETIME ONE 01/26/19 09:56 Discontinue Telemetry Monitoring [Cardiac Monitoring Discontinue] [RC] Click to Edit 01/26/19 10:00 NS + KCl 20mEq/L [Normal Saline with 20 mEq KCl] 1,000 ml IV ASDIRECTED 01/27/19 05:00 BASIC METABOLIC PANEL,BMP [CHEM] Timed CBC W/O DIFF,HEMOGRAM [HEME] Timed (1) HUMAN GRANULOCYTIC JOHNNY-HGE Routine 01/27/19 07:00 PT Evaluation and Treatment [CONS] Routine - Plan Plan:: ASSESSMENT AND PLAN - 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 Clinically she is doing better but still extremely weak and fatigued. No significant pain at this time. Laboratory studies are stable but not normal as of yet. Lactic acid level has normalized. -Doxycycline for presumed tickborne illness -Discontinue Zosyn -Follow-up urine and blood cultures -Continue gentle fluids -Physical therapy in the morning with her weakness Hypokalemia - improving with supplementation. -Oral potassium this morning -Potassium containing IV fluids -Recheck later this evening and replace as indicated Essential hypertension - Antihypertensive medications will remain on hold. Fibromyalgia - stable at this time. Maintenance issues - - DVT prophylaxis - Mechanical with thrombocytopenia - GI prophylaxis - PPI - Nutrition - Regular diet as tolerated Disposition - I would anticipate discharge home after the hospital stay Sonny Hunt M.D.
[2019-01-26] MEDS ORDERED: Potassium Chloride 20 MEQ Tab.ER PO ONE (10:15)
[2019-01-27] MEDS: Doxycycline 100 MG in Sodium Chloride 0.9% 100 ML IV SCH ×2 (04:11→15:30)
[2019-01-27] MEDS: NS + KCl 20mEq/L 1,000 ML IV SCH (04:16)
[2019-01-27] MEDS: Pantoprazole 40 MG Tab.CR PO SCH (07:37)
[2019-01-27] MEDS: Lactobacillus Rhamnosus GG (Probiotic) Cap PO SCH ×2 (09:53→20:43)
[2019-01-27] MEDS: PARoxetine 20 MG Tab PO SCH (09:53)
--- NOTE | 2019-01-27 13:53 | PCM.PN ---
- General Info Date of Service: 01/27/19 Subjective Update: Mrs. Gee has been stable since yesterday and noted improvement in overall energy level and appetite. White blood cell count and platelet counts remain low, she is had no significant temperature elevation in the last 24 hours. Functional Status: Reports: Tolerating Diet, Ambulating, Urinating - Review of Systems General: Reports: Weakness. Denies: Fever, Chills Pulmonary: Reports: No Symptoms Cardiovascular: Reports: No Symptoms Gastrointestinal: Reports: No Symptoms - Patient Data Vitals - Most Recent: Last Vital Signs Temp 95.5 F 01/27/19 11:25 Pulse 71 01/27/19 11:25 Resp 18 01/27/19 11:25 BP 137/67 01/27/19 11:25 Pulse Ox 97 01/27/19 11:25 Weight - Most Recent: 110 lb I&O - Last 24 Hours: Intake & Output 01/26/19 01/27/19 01/27/19 22:59 06:59 14:59 Intake Total 1481 980 30 Output Total 400 Balance 1081 980 30 Lab Results Last 24 Hours: Laboratory Results - last 24 hr 01/27/19 01/27/19 Range/Units 04:15 04:15 WBC 4.5 (4.5-11.0) K/uL RBC 4.37 (3.30-5.50) M/uL Hgb 13.5 (12.0-15.0) g/dL Hct 41.4 (36.0-48.0) % MCV 95 (80-98) fL MCH 31 (27-31) pg MCHC 33 (32-36) % Plt Count 39 L (150-400) K/uL Sodium 131 L (140-148) mmol/L Potassium 4.3 (3.6-5.2) mmol/L Chloride 102 (100-108) mmol/L Carbon Dioxide 25 (21-32) mmol/L Anion Gap 3.8 L (5.0-14.0) mmol/L BUN 16 (7-18) mg/dL Creatinine 0.5 L (0.6-1.0) mg/dL Est Cr Clr Drug Dosing 71.86 mL/min Estimated GFR (MDRD) > 60 (>60) Glucose 82 (74-106) mg/dL Calcium 8.2 L (8.5-10.1) mg/dL [facility] Results Last 24 Hours: Microbiology 01/25/19 10:06 Aerobic Blood Culture - Preliminary Blood - Venous - Iv Start NO GROWTH AFTER 2 DAYS Anaerobic Blood Culture - Preliminary NO GROWTH AFTER 2 DAYS 01/25/19 10:00 Aerobic Blood Culture - Preliminary Blood - Venous - Iv Start NO GROWTH AFTER 2 DAYS Anaerobic Blood Culture - Preliminary NO GROWTH AFTER 2 DAYS Med Orders - Current: Current Medications Acetaminophen (Tylenol) 650 mg PO Q4H PRN PRN Reason: Pain (Mild 1-3)/fever Albuterol (Proventil Neb Soln) 2.5 mg NEB Q4H PRN PRN Reason: Shortness Of Breath/wheezing Doxycycline Hyclate 100 mg/ (Sodium Chloride) 100 mls @ 100 mls/hr IV Q12H [facility] Last Admin: 01/27/19 04:11 Dose: 100 mls/hr Lactobacillus Rhamnosus (Culturelle) 1 cap PO BID [facility] Last Admin: 01/27/19 09:53 Dose: 1 cap Magnesium Hydroxide (Milk Of Magnesia) 30 ml PO Q12H PRN PRN Reason: Constipation Melatonin (Melatonin) 9 mg PO BEDTIME PRN PRN Reason: sleep Ondansetron HCl (Zofran Odt) 4 mg PO Q6H PRN PRN Reason: Nausea able to take PO Ondansetron HCl (Zofran) 4 mg IV Q6H PRN PRN Reason: Nausea/Vomiting Oxycodone HCl (Oxycodone) 5 mg PO Q4H PRN PRN Reason: Pain (moderate 4-6) Pantoprazole Sodium (Protonix) 40 mg PO ACBREAKFAST [facility] Last Admin: 01/27/19 07:37 Dose: 40 mg Paroxetine HCl (Paxil) 30 mg PO DAILY [facility] Last Admin: 01/27/19 09:53 Dose: 30 mg Senna/Docusate Sodium (Senna Plus) 1 tab PO BID PRN PRN Reason: Constipation Discontinued Medications Acetaminophen (Tylenol Extra Strength) 1,000 mg PO ONETIME ONE Stop: 01/25/19 14:20 Last Admin: 01/25/19 14:28 Dose: 1,000 mg Albuterol/Ipratropium (Duoneb 3.0-0.5 Mg/3 Ml) 3 ml NEB ONETIME ONE Stop: 01/25/19 11:51 Last Admin: 01/25/19 12:32 Dose: 3 ml Lactated Ringer's (Ringers, Lactated) 1,000 mls @ 999 mls/hr IV ASDIRECTED [facility] Last Admin: 01/25/19 10:03 Dose: 999 mls/hr Lactated Ringer's (Ringers, Lactated) 1,000 mls @ 999 mls/hr IV BOLUS ONE Stop: 01/25/19 11:57 Last Admin: 01/25/19 11:03 Dose: 999 mls/hr Piperacillin Sod/Tazobactam (Sod 4.5 gm/ Sodium Chloride) 100 mls @ 200 mls/hr IV Q6H [facility] Last Admin: 01/25/19 11:23 Dose: 200 mls/hr Sodium Chloride (Normal Saline) 100 mls @ 3 mls/sec IV ASDIRECTED [facility] Last Admin: 01/25/19 12:23 Dose: 3 mls/sec Sodium Chloride (Normal Saline) 1,000 mls @ 999 mls/hr IV ASDIRECTED [facility] Stop: 01/25/19 15:46 Last Admin: 01/25/19 14:45 Dose: 999 mls/hr Doxycycline Hyclate 100 mg/ (Sodium Chloride) 100 mls @ 100 mls/hr IV ONETIME ONE Stop: 01/25/19 15:59 Last Admin: 01/25/19 15:07 Dose: 100 mls/hr Piperacillin/Tazobactam/ (Dextrose 3.375 gm/ Premix) 50 mls @ 100 mls/hr IV Q6H [facility] Last Admin: 01/26/19 04:36 Dose: 100 mls/hr Potassium Chloride 20 meq/Lidocaine HCl 2 ml/ Sodium Chloride 112 mls @ 56 mls/ hr IV ONETIME ONE Stop: 01/25/19 17:44 Last Admin: 01/25/19 16:09 Dose: 56 mls/hr Potassium Chloride/Sodium Chloride (Normal Saline With 20 Meq Kcl) 1,000 mls @ 125 mls/hr IV ASDIRECTED [facility] Last Admin: 01/26/19 04:37 Dose: 125 mls/hr Potassium Chloride 20 meq/ (Premix) 100 mls @ 50 mls/hr IV ONETIME [facility] Stop: 01/26/19 22:59 Last Admin: 01/26/19 00:02 Dose: 50 mls/hr Potassium Chloride (Kcl 20 Meq In Water 100 Ml) Confirm Administered Dose 100 mls @ as directed .ROUTE .STK-MED ONE Stop: 01/25/19 20:49 Last Admin: 01/26/19 00:03 Dose: Not Given Magnesium Sulfate 2 gm/ Premix 50 mls @ 12.5 mls/hr IV Q6H [facility] Stop: 01/26/19 19:44 Last Admin: 01/26/19 14:49 Dose: Not Given Potassium Chloride/Sodium Chloride (Normal Saline With 20 Meq Kcl) 1,000 mls @ 100 mls/hr IV ASDIRECTED [facility] Last Admin: 01/27/19 04:16 Dose: 100 mls/hr Iopamidol (Isovue-370 (76%)) 100 ml IV . DIRECTED [facility] Last Admin: 01/25/19 12:24 Dose: 100 ml Lidocaine HCl (Xylocaine-Mpf 1%) 4 ml INJECT ONETIME [facility] Last Admin: 01/25/19 20:57 Dose: 4 ml Potassium Chloride (Klor-Con M20) 40 meq PO ONETIME ONE Stop: 01/25/19 10:50 Last Admin: 01/25/19 11:01 Dose: 40 meq Potassium Chloride (Klor-Con M20) 40 meq PO ONETIME ONE Stop: 01/26/19 10:16 Last Admin: 01/26/19 12:30 Dose: 40 meq Sodium Chloride (Saline Flush) 10 ml FLUSH ONETIME ONE Stop: 01/25/19 11:58 Last Admin: 01/25/19 12:23 Dose: 10 ml - Exam Quality Assessment: DVT Prophylaxis General: Alert, Oriented, Cooperative, Mild Distress Lungs: Clear to Auscultation, Normal Respiratory Effort Cardiovascular: Regular Rate, Regular Rhythm, No Murmurs GI/Abdominal Exam: Soft, Non-Tender, No Organomegaly, No Distention Extremities: Non-Tender, No Pedal Edema - Problem List Review Problem List Initiated/Reviewed/Updated: Yes - My Orders Last 24 Hours: My Active Orders 01/27/19 13:50 Convert IV to Saline Lock [OM.PC] Routine 01/28/19 05:00 CBC WITH AUTO DIFF [HEME] Timed - Plan Plan:: ASSESSMENT AND PLAN - 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 Clinically she is doing better, improved appetite and overall strength -Doxycycline for presumed tickborne illness -Follow-up urine and blood cultures -Saline lock IV -Physical therapy Hypokalemia - resolved with potassium replacement Essential hypertension - Antihypertensive medications will remain on hold. Fibromyalgia - stable at this time. Maintenance issues - - DVT prophylaxis - Mechanical with thrombocytopenia - GI prophylaxis - PPI - Nutrition - Regular diet as tolerated Disposition - I would anticipate discharge home after the hospital stay
[2019-01-28] MEDS: Doxycycline 100 MG in Sodium Chloride 0.9% 100 ML IV SCH (02:43)
[2019-01-28] MEDS: Pantoprazole 40 MG Tab.CR PO SCH (07:48)
[2019-01-28] MEDS: PARoxetine 20 MG Tab PO SCH (08:57)
[2019-01-28] MEDS: Lactobacillus Rhamnosus GG (Probiotic) Cap PO SCH ×2 (08:57→21:27)
--- NOTE | 2019-01-28 12:27 | PCM.PN ---
- General Info Date of Service: 01/28/19 Subjective Update: Ms. Aguilar has noted further improvement in last 24 hours with improvement in appetite as well as overall strength. She is now transferring and ambulating with assistance of one. Oxygen requirements improving and she is now down to 1 L /m via nasal cannula. She was placed on room air this morning and her oxygen saturation was found to be 87%. Functional Status: Reports: Tolerating Diet, Ambulating, Urinating - Review of Systems General: Reports: Weakness. Denies: Fever, Chills Pulmonary: Reports: No Symptoms Cardiovascular: Reports: No Symptoms Gastrointestinal: Reports: No Symptoms - Patient Data Vitals - Most Recent: Last Vital Signs Temp 97.3 F 01/28/19 10:35 Pulse 87 01/28/19 10:35 Resp 16 01/28/19 10:35 BP 138/88 01/28/19 10:35 Pulse Ox 98 01/28/19 10:35 Weight - Most Recent: 110 lb I&O - Last 24 Hours: Intake & Output 01/27/19 01/28/19 01/28/19 22:59 06:59 14:59 Intake Total 1200 200 320 Output Total 100 200 Balance 1100 0 320 Lab Results Last 24 Hours: Laboratory Results - last 24 hr 01/28/19 Range/Units 06:03 WBC 5.1 (4.5-11.0) K/uL RBC 4.41 (3.30-5.50) M/uL Hgb 14.0 (12.0-15.0) g/dL Hct 41.7 (36.0-48.0) % MCV 95 (80-98) fL MCH 32 H (27-31) pg MCHC 34 (32-36) % Plt Count 43 L (150-400) K/uL Neut % (Auto) 64 (36-66) % Lymph % (Auto) 20 L (24-44) % [place] % (Auto) 13 H (2-6) % Eos % (Auto) 0 L (2-4) % Baso % (Auto) 3 H (0-1) % Cole Results Last 24 Hours: Microbiology 01/25/19 10:00 Aerobic Blood Culture - Preliminary Blood - Venous - Iv Start NO GROWTH AFTER 3 DAYS Anaerobic Blood Culture - Preliminary NO GROWTH AFTER 3 DAYS 01/25/19 10:06 Aerobic Blood Culture - Preliminary Blood - Venous - Iv Start NO GROWTH AFTER 3 DAYS Anaerobic Blood Culture - Preliminary NO GROWTH AFTER 3 DAYS Med Orders - Current: Current Medications Acetaminophen (Tylenol) 650 mg PO Q4H PRN PRN Reason: Pain (Mild 1-3)/fever Albuterol (Proventil Neb Soln) 2.5 mg NEB Q4H PRN PRN Reason: Shortness Of Breath/wheezing Doxycycline Hyclate 100 mg/ (Sodium Chloride) 100 mls @ 100 mls/hr IV Q12H [facility] Last Admin: 01/28/19 02:43 Dose: 100 mls/hr Lactobacillus Rhamnosus (Culturelle) 1 cap PO BID [facility] Last Admin: 01/28/19 08:57 Dose: 1 cap Magnesium Hydroxide (Milk Of Magnesia) 30 ml PO Q12H PRN PRN Reason: Constipation Melatonin (Melatonin) 9 mg PO BEDTIME PRN PRN Reason: sleep Ondansetron HCl (Zofran Odt) 4 mg PO Q6H PRN PRN Reason: Nausea able to take PO Ondansetron HCl (Zofran) 4 mg IV Q6H PRN PRN Reason: Nausea/Vomiting Oxycodone HCl (Oxycodone) 5 mg PO Q4H PRN PRN Reason: Pain (moderate 4-6) Pantoprazole Sodium (Protonix) 40 mg PO ACBREAKFAST [facility] Last Admin: 01/28/19 07:48 Dose: 40 mg Paroxetine HCl (Paxil) 30 mg PO DAILY [facility] Last Admin: 01/28/19 08:57 Dose: 30 mg Senna/Docusate Sodium (Senna Plus) 1 tab PO BID PRN PRN Reason: Constipation Discontinued Medications Acetaminophen (Tylenol Extra Strength) 1,000 mg PO ONETIME ONE Stop: 01/25/19 14:20 Last Admin: 01/25/19 14:28 Dose: 1,000 mg Albuterol/Ipratropium (Duoneb 3.0-0.5 Mg/3 Ml) 3 ml NEB ONETIME ONE Stop: 01/25/19 11:51 Last Admin: 01/25/19 12:32 Dose: 3 ml Lactated Ringer's (Ringers, Lactated) 1,000 mls @ 999 mls/hr IV ASDIRECTED [facility] Last Admin: 01/25/19 10:03 Dose: 999 mls/hr Lactated Ringer's (Ringers, Lactated) 1,000 mls @ 999 mls/hr IV BOLUS ONE Stop: 01/25/19 11:57 Last Admin: 01/25/19 11:03 Dose: 999 mls/hr Piperacillin Sod/Tazobactam (Sod 4.5 gm/ Sodium Chloride) 100 mls @ 200 mls/hr IV Q6H [facility] Last Admin: 01/25/19 11:23 Dose: 200 mls/hr Sodium Chloride (Normal Saline) 100 mls @ 3 mls/sec IV ASDIRECTED [facility] Last Admin: 01/25/19 12:23 Dose: 3 mls/sec Sodium Chloride (Normal Saline) 1,000 mls @ 999 mls/hr IV ASDIRECTED [facility] Stop: 01/25/19 15:46 Last Admin: 01/25/19 14:45 Dose: 999 mls/hr Doxycycline Hyclate 100 mg/ (Sodium Chloride) 100 mls @ 100 mls/hr IV ONETIME ONE Stop: 01/25/19 15:59 Last Admin: 01/25/19 15:07 Dose: 100 mls/hr Piperacillin/Tazobactam/ (Dextrose 3.375 gm/ Premix) 50 mls @ 100 mls/hr IV Q6H [facility] Last Admin: 01/26/19 04:36 Dose: 100 mls/hr Potassium Chloride 20 meq/Lidocaine HCl 2 ml/ Sodium Chloride 112 mls @ 56 mls/ hr IV ONETIME ONE Stop: 01/25/19 17:44 Last Admin: 01/25/19 16:09 Dose: 56 mls/hr Potassium Chloride/Sodium Chloride (Normal Saline With 20 Meq Kcl) 1,000 mls @ 125 mls/hr IV ASDIRECTED [facility] Last Admin: 01/26/19 04:37 Dose: 125 mls/hr Potassium Chloride 20 meq/ (Premix) 100 mls @ 50 mls/hr IV ONETIME [facility] Stop: 01/26/19 22:59 Last Admin: 01/26/19 00:02 Dose: 50 mls/hr Potassium Chloride (Kcl 20 Meq In Water 100 Ml) Confirm Administered Dose 100 mls @ as directed .ROUTE .STK-MED ONE Stop: 01/25/19 20:49 Last Admin: 01/26/19 00:03 Dose: Not Given Magnesium Sulfate 2 gm/ Premix 50 mls @ 12.5 mls/hr IV Q6H [facility] Stop: 01/26/19 19:44 Last Admin: 01/26/19 14:49 Dose: Not Given Potassium Chloride/Sodium Chloride (Normal Saline With 20 Meq Kcl) 1,000 mls @ 100 mls/hr IV ASDIRECTED [facility] Last Admin: 01/27/19 04:16 Dose: 100 mls/hr Iopamidol (Isovue-370 (76%)) 100 ml IV . DIRECTED [facility] Last Admin: 01/25/19 12:24 Dose: 100 ml Lidocaine HCl (Xylocaine-Mpf 1%) 4 ml INJECT ONETIME [facility] Last Admin: 01/25/19 20:57 Dose: 4 ml Potassium Chloride (Klor-Con M20) 40 meq PO ONETIME ONE Stop: 01/25/19 10:50 Last Admin: 01/25/19 11:01 Dose: 40 meq Potassium Chloride (Klor-Con M20) 40 meq PO ONETIME ONE Stop: 01/26/19 10:16 Last Admin: 01/26/19 12:30 Dose: 40 meq Sodium Chloride (Saline Flush) 10 ml FLUSH ONETIME ONE Stop: 01/25/19 11:58 Last Admin: 01/25/19 12:23 Dose: 10 ml - Exam Quality Assessment: DVT Prophylaxis General: Alert, Oriented, Cooperative, Mild Distress Lungs: Clear to Auscultation, Normal Respiratory Effort Cardiovascular: Regular Rate, Regular Rhythm, Murmurs GI/Abdominal Exam: Soft, Non-Tender, No Organomegaly, No Distention Extremities: Non-Tender, No Pedal Edema - Problem List Review Problem List Initiated/Reviewed/Updated: Yes - My Orders Last 24 Hours: My Active Orders 01/27/19 13:50 Convert IV to Saline Lock [OM.PC] Routine 01/29/19 05:00 CBC WITH AUTO DIFF [HEME] Timed - Plan Plan:: ASSESSMENT AND PLAN - 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 Clinically she is doing better, improved appetite and overall strength, now ambulating and transferring with assistance of one -Doxycycline for presumed tickborne illness, we'll discontinue IV antibiotic therapy and switched to oral doxycycline -Saline lock IV -Physical therapy Hypoxia-likely secondary to underlying pulmonary disease -May require supplemental oxygen on discharge Hypokalemia - resolved with potassium replacement Essential hypertension - Antihypertensive medications will remain on hold. Fibromyalgia - stable at this time. Maintenance issues - - DVT prophylaxis - Mechanical with thrombocytopenia - GI prophylaxis - PPI - Nutrition - Regular diet as tolerated Disposition - I would anticipate discharge home after the hospital stay
[2019-01-28] MEDS: Doxycycline 100 MG Cap PO SCH (21:27)
[2019-01-29] MEDS: Pantoprazole 40 MG Tab.CR PO SCH (07:34)
[2019-01-29] MEDS: Lactobacillus Rhamnosus GG (Probiotic) Cap PO SCH (08:35)
[2019-01-29] MEDS: Doxycycline 100 MG Cap PO SCH (08:35)
[2019-01-29] MEDS: PARoxetine 20 MG Tab PO SCH (08:35)
[2019-01-29 10:11] VITALS: BP 133/75; PULSE 81
--- NOTE | 2019-01-29 12:37 | PCM.DCSUM1 ---
Discharge Summary - Hospital Course Brief History: Ms. Aguilar is a 78-year-old woman who was admitted through the emergency department with weakness, myalgias, and fever, secondary to anaplasmosis. - Discharge Data Discharge Date: 01/29/19 Discharge Disposition: Home, Self-Care 01 Condition: Good - Referral to Home Health Primary Care Physician: Wil Jaeger MD - Discharge Diagnosis/Problem(s) (1) Dehydration SNOMED Code(s): 04403861 ICD Code: E86.0 - DEHYDRATION Status: Acute Current Visit: Yes (2) Weakness SNOMED Code(s): 32848500 ICD Code: R53.1 - WEAKNESS Status: Acute Current Visit: Yes (3) Anaplasmosis SNOMED Code(s): 144344137 ICD Code: A77.49 - OTHER EHRLICHIOSIS Status: Acute Current Visit: Yes (4) Sepsis SNOMED Code(s): 24647186 ICD Code: A41.9 - SEPSIS, UNSPECIFIED ORGANISM Status: Acute Current Visit: Yes Qualifiers: Sepsis type: sepsis due to unspecified organism Sepsis acute organ dysfunction status: without acute organ dysfunction Qualified Code(s): A41.9 - Sepsis, unspecified organism - Patient Summary/Data Consults: Consultations 01/27/19 07:00 PT Evaluation and Treatment [CONS] Routine Please Evaluate and Treat. PT Reason for Consult: Strengthening This query below is only for informational purposes and is not editable. Admission Diagnosis/Problem: Human anaplasmosis Hospital Course: Ms. Aguilar presented with several days of progressive weakness, fatigue and myalgias as well as fevers. Symptoms started about 4 days or to admission when she said she felt like somebody punched her in the chest. She suddenly became very fatigued and had to go home and lay down. Since that time she has had progressive weakness and fatigue. She has had nausea much of the week and has had very little to eat or drink. She developed fever several days ago in these have been getting more intense. She's had multiple episodes of shaking chills as well. She has diffuse myalgias which are much worse than her usual fibromyalgia. No complaints of vomiting or diarrhea. No dysuria at this time. She feels a little bit short of breath but has not been coughing much. No obvious sick contacts that she is aware of. She does have multiple pets which are outside and could potentially have brought in to ticks. Workup in the emergency room concerning for sepsis with suspicion for anaplasmosis based on laboratory testing and symptoms. She has received some IV fluids and antibiotics. She has a significantly low potassium. She is extremely dehydrated. She will be admitted to the hospital for further management of sepsis presumed secondary to anaplasmosis. On admission she was continued on IV doxycycline and was given IV fluids for hydration. She slowly improved over the next several days of hospitalization regaining strength. She was noted to have hypoxia and required supplemental oxygen, by the time of discharge was off of supplemental oxygen with adequate oxygenation on room air. Overall strength slowly improved during hospitalization , she was seen daily by physical therapy. By the time of discharge she was able to transfer and ambulate independently. Laboratory studies were monitored during hospitalization, by the time of discharge platelet count had started to come up but remained low. Activity will be as tolerated and she will resume her usual diet. She will remain on oral doxycycline 100 mg twice daily for an additional 3 days. Follow-up appointment will be scheduled with her primary care provider within one week. - Patient Instructions Diet: Usual Diet as Tolerated Activity: As Tolerated Other/Special Instructions: Please schedule follow-up appointment with Dr. Jaeger within one week - Discharge Plan *PRESCRIPTION DRUG MONITORING PROGRAM REVIEWED*: Not Applicable *COPY OF PRESCRIPTION DRUG MONITORING REPORT IN PATIENT [place]: Not Applicable Prescriptions/Med Rec: Doxycycline [Vibramycin] 100 mg PO BID #6 cap Home Medications: Home Meds Cyanocobalamin (Vitamin B-12) [Vitamin B-12] 1 ml INJECT .[id number] 01/19/16 [ History] Ferrous Sulfate 325 mg PO DAILY 01/19/16 [History] HCTZ/Triamterene [Maxzide 25-37.5 MG] 2 each PO DAILY 01/19/16 [History] Multivitamin [Multiple Vitamins] 1 each PO DAILY 01/19/16 [History] Omeprazole Magnesium [Prilosec Otc] 20 mg PO BID 01/19/16 [History] PARoxetine [Paxil] 30 mg PO DAILY 01/19/16 [History] Potassium Chloride [Klor-Con 10] 10 meq PO DAILY 01/19/16 [History] Losartan Potassium 50 mg PO DAILY 01/25/19 [History] Doxycycline [Vibramycin] 100 mg PO BID #6 cap 01/29/19 [Rx] Referrals: Wil Jaeger MD [Primary Care Provider] - 02/06/19 1:30 pm (Please arrive 15 minutes ealry to register for your appointment.) - Discharge Summary/Plan Comment DC Time >30 min.: No - Patient Data Vitals - Most Recent: Last Vital Signs Temp 96.1 F 01/29/19 10:08 Pulse 81 01/29/19 10:08 Resp 18 01/29/19 10:08 BP 133/75 01/29/19 10:08 Pulse Ox 93 L 01/29/19 10:08 Weight - Most Recent: 110 lb I&O - Last 24 hours: Intake & Output 01/28/19 01/29/19 01/29/19 22:59 06:59 14:59 Intake Total 780 240 Output Total 400 300 300 Balance 380 -300 -60 Lab Results - Last 24 hrs: Laboratory Results - last 24 hr 01/29/19 Range/Units 04:17 WBC 6.9 (4.5-11.0) K/uL RBC 4.13 (3.30-5.50) M/uL Hgb 13.1 (12.0-15.0) g/dL Hct 38.9 (36.0-48.0) % MCV 94 (80-98) fL MCH 32 H (27-31) pg MCHC 34 (32-36) % Plt Count 65 L (150-400) K/uL Neut % (Auto) 46 (36-66) % Lymph % (Auto) 31 (24-44) % [place] % (Auto) 19 H (2-6) % Eos % (Auto) 1 L (2-4) % Baso % (Auto) 4 H (0-1) % TENZIN Results - Last 24 hrs: Microbiology 01/25/19 10:00 Aerobic Blood Culture - Preliminary Blood - Venous - Iv Start NO GROWTH AFTER 4 DAYS Anaerobic Blood Culture - Preliminary NO GROWTH AFTER 4 DAYS 01/25/19 10:06 Aerobic Blood Culture - Preliminary Blood - Venous - Iv Start NO GROWTH AFTER 4 DAYS Anaerobic Blood Culture - Preliminary NO GROWTH AFTER 4 DAYS Med Orders - Current: Current Medications Acetaminophen (Tylenol) 650 mg PO Q4H PRN PRN Reason: Pain (Mild 1-3)/fever Albuterol (Proventil Neb Soln) 2.5 mg NEB Q4H PRN PRN Reason: Shortness Of Breath/wheezing Doxycycline Hyclate (Vibramycin) 100 mg PO BID [facility] Last Admin: 01/29/19 08:35 Dose: 100 mg Lactobacillus Rhamnosus (Culturelle) 1 cap PO BID [facility] Last Admin: 01/29/19 08:35 Dose: 1 cap Magnesium Hydroxide (Milk Of Magnesia) 30 ml PO Q12H PRN PRN Reason: Constipation Melatonin (Melatonin) 9 mg PO BEDTIME PRN PRN Reason: sleep Ondansetron HCl (Zofran Odt) 4 mg PO Q6H PRN PRN Reason: Nausea able to take PO Ondansetron HCl (Zofran) 4 mg IV Q6H PRN PRN Reason: Nausea/Vomiting Oxycodone HCl (Oxycodone) 5 mg PO Q4H PRN PRN Reason: Pain (moderate 4-6) Pantoprazole Sodium (Protonix) 40 mg PO ACBREAKFAST [facility] Last Admin: 01/29/19 07:34 Dose: 40 mg Paroxetine HCl (Paxil) 30 mg PO DAILY [facility] Last Admin: 01/29/19 08:35 Dose: 30 mg Senna/Docusate Sodium (Senna Plus) 1 tab PO BID PRN PRN Reason: Constipation Discontinued Medications Acetaminophen (Tylenol Extra Strength) 1,000 mg PO ONETIME ONE Stop: 01/25/19 14:20 Last Admin: 01/25/19 14:28 Dose: 1,000 mg Albuterol/Ipratropium (Duoneb 3.0-0.5 Mg/3 Ml) 3 ml NEB ONETIME ONE Stop: 01/25/19 11:51 Last Admin: 01/25/19 12:32 Dose: 3 ml Lactated Ringer's (Ringers, Lactated) 1,000 mls @ 999 mls/hr IV ASDIRECTED [facility] Last Admin: 01/25/19 10:03 Dose: 999 mls/hr Lactated Ringer's (Ringers, Lactated) 1,000 mls @ 999 mls/hr IV BOLUS ONE Stop: 01/25/19 11:57 Last Admin: 01/25/19 11:03 Dose: 999 mls/hr Piperacillin Sod/Tazobactam (Sod 4.5 gm/ Sodium Chloride) 100 mls @ 200 mls/hr IV Q6H [facility] Last Admin: 01/25/19 11:23 Dose: 200 mls/hr Sodium Chloride (Normal Saline) 100 mls @ 3 mls/sec IV ASDIRECTED [facility] Last Admin: 01/25/19 12:23 Dose: 3 mls/sec Sodium Chloride (Normal Saline) 1,000 mls @ 999 mls/hr IV ASDIRECTED [facility] Stop: 01/25/19 15:46 Last Admin: 01/25/19 14:45 Dose: 999 mls/hr Doxycycline Hyclate 100 mg/ (Sodium Chloride) 100 mls @ 100 mls/hr IV ONETIME ONE Stop: 01/25/19 15:59 Last Admin: 01/25/19 15:07 Dose: 100 mls/hr Doxycycline Hyclate 100 mg/ (Sodium Chloride) 100 mls @ 100 mls/hr IV Q12H [facility] Last Admin: 01/28/19 02:43 Dose: 100 mls/hr Piperacillin/Tazobactam/ (Dextrose 3.375 gm/ Premix) 50 mls @ 100 mls/hr IV Q6H [facility] Last Admin: 01/26/19 04:36 Dose: 100 mls/hr Potassium Chloride 20 meq/Lidocaine HCl 2 ml/ Sodium Chloride 112 mls @ 56 mls/ hr IV ONETIME ONE Stop: 01/25/19 17:44 Last Admin: 01/25/19 16:09 Dose: 56 mls/hr Potassium Chloride/Sodium Chloride (Normal Saline With 20 Meq Kcl) 1,000 mls @ 125 mls/hr IV ASDIRECTED [facility] Last Admin: 01/26/19 04:37 Dose: 125 mls/hr Potassium Chloride 20 meq/ (Premix) 100 mls @ 50 mls/hr IV ONETIME [facility] Stop: 01/26/19 22:59 Last Admin: 01/26/19 00:02 Dose: 50 mls/hr Potassium Chloride (Kcl 20 Meq In Water 100 Ml) Confirm Administered Dose 100 mls @ as directed .ROUTE .STK-MED ONE Stop: 01/25/19 20:49 Last Admin: 01/26/19 00:03 Dose: Not Given Magnesium Sulfate 2 gm/ Premix 50 mls @ 12.5 mls/hr IV Q6H [facility] Stop: 01/26/19 19:44 Last Admin: 01/26/19 14:49 Dose: Not Given Potassium Chloride/Sodium Chloride (Normal Saline With 20 Meq Kcl) 1,000 mls @ 100 mls/hr IV ASDIRECTED [facility] Last Admin: 01/27/19 04:16 Dose: 100 mls/hr Iopamidol (Isovue-370 (76%)) 100 ml IV . DIRECTED [facility] Last Admin: 01/25/19 12:24 Dose: 100 ml Lidocaine HCl (Xylocaine-Mpf 1%) 4 ml INJECT ONETIME [facility] Last Admin: 01/25/19 20:57 Dose: 4 ml Potassium Chloride (Klor-Con M20) 40 meq PO ONETIME ONE Stop: 01/25/19 10:50 Last Admin: 01/25/19 11:01 Dose: 40 meq Potassium Chloride (Klor-Con M20) 40 meq PO ONETIME ONE Stop: 01/26/19 10:16 Last Admin: 01/26/19 12:30 Dose: 40 meq Sodium Chloride (Saline Flush) 10 ml FLUSH ONETIME ONE Stop: 01/25/19 11:58 Last Admin: 01/25/19 12:23 Dose: 10 ml - Exam Quality Assessment: Reports: DVT Prophylaxis General: Reports: Alert, Oriented, Cooperative, No Acute Distress Lungs: Reports: Clear to Auscultation, Normal Respiratory Effort Cardiovascular: Reports: Regular Rate, Regular Rhythm, No Murmurs GI/Abdominal Exam: Soft, Non-Tender, No Organomegaly, No Distention Extremities: Non-Tender, No Pedal Edema
[2019-01-29 13:10] LABS: HGE IGG TITER Negative (Neg:<1:64); HGE IGM TITER Negative (Neg:<1:20)
== END 2019-01-29 13:27 | disposition home or self-care (01) | DRG 872 ==
LOC: JP.ED 09:28 → JP.ICU 14:39 → JP.MS 01-26 14:47
PROVIDERS: ADMIT Internal Medicine; ATTEND Internal Medicine
DX: A41.9 Sepsis, unspecified organism (principal); R53.1 Weakness; R50.9 Fever, unspecified; A77.49 Other ehrlichiosis; E78.5 Hyperlipidemia, unspecified; N30.00 Acute cystitis without hematuria; E86.0 Dehydration; M79.7 Fibromyalgia; E87.6 Hypokalemia; D69.6 Thrombocytopenia, unspecified; E86.1 Hypovolemia; E78.00 Pure hypercholesterolemia, unspecified; I10 Essential (primary) hypertension; G47.00 Insomnia, unspecified; K21.9 Gastro-esophageal reflux disease without esophagitis; M19.90 Unspecified osteoarthritis, unspecified site; M81.0 Age-related osteoporosis without current pathological fracture; F32.9 Major depressive disorder, single episode, unspecified; D64.9 Anemia, unspecified; E55.9 Vitamin D deficiency, unspecified; F17.200 Nicotine dependence, unspecified, uncomplicated; Z79.899 Other long term (current) drug therapy; Z88.6 Allergy status to analgesic agent; Z88.8 Allergy status to other drugs, medicaments and biological substances
CPT/HCPCS: 36415; 71045; 71275; 80053; 81001; 83605; 84145; 84484; 85025; 86140; 87040 ×2; 87804 ×2; 94640; 99283; A9270 ×2; J2543; J7030 ×2; J7120 ×2; Q9967; 80048; 83735; 84132; 85027; 86666; 97110-GP; 97116-GP; 97162-GP; J2001; J3475; J3480; J3490; J7620-GY

== ENCOUNTER 2021-07-08 13:22 | Emergency (ER) | payer MEDICARE, OTHER ==
[2021-07-08 14:56] VITALS: BP 183/91; PULSE 71
== END 2021-07-08 15:24 | disposition home or self-care (01) ==
LOC: JP.ED 13:22
DX: I10 Essential (primary) hypertension (principal); S00.81XA Abrasion of other part of head, initial encounter; K21.9 Gastro-esophageal reflux disease without esophagitis; J44.9 Chronic obstructive pulmonary disease, unspecified; Z88.6 Allergy status to analgesic agent; Z88.8 Allergy status to other drugs, medicaments and biological substances; Z79.899 Other long term (current) drug therapy; Z87.891 Personal history of nicotine dependence
CPT/HCPCS: 36415; 70450; 70450-26; 80053; 85025; 99282; 99284-25

== ENCOUNTER 2021-08-16 07:57 | Day surgery (SDC) | payer MEDICARE, OTHER ==
[~2021-08-16 07:57] MED LIST: Propofol 200 MG/20 ML SDV ONE; fentaNYL 100 MCG/2 ML SDV ONE
[2021-08-16] MEDS ORDERED: Dextrose 5%-Lactated Ringers 1,000 ML IV SCH (08:30)
[2021-08-16] MEDS ORDERED: Pantoprazole 40 MG Vial IVPUSH ONE (10:19)
[2021-08-16 11:27] VITALS: BP 151/79; PULSE 77
== END 2021-08-16 11:29 | disposition home or self-care (01) ==
LOC: JP.SDS 07:57
PROVIDERS: ATTEND Surgery
DX: K57.31 Diverticulosis of large intestine without perforation or abscess with bleeding (principal); K28.9 Gastrojejunal ulcer, unspecified as acute or chronic, without hemorrhage or perforation; T18.2XXA Foreign body in stomach, initial encounter; I10 Essential (primary) hypertension
CPT/HCPCS: 87081; C9113; J2704; J3010; J7121

== ENCOUNTER 2022-08-20 20:01 | Emergency (ER) | payer MEDICARE ==
[2022-08-20 20:21] VITALS: BP 172/84; PULSE 78
[2022-08-20] MEDS ORDERED: Sodium Chloride 0.9% 10 ML Syringe FLUSH PRN (20:37)
[2022-08-20] MEDS ORDERED: HYDROmorphone 0.5 MG/0.5 ML Syringe IVPUSH ONE (20:38)
[2022-08-20] MEDS ORDERED: Ondansetron 4 MG/2 ML SDV IVPUSH ONE (20:38)
[2022-08-20] MEDS ORDERED: Pantoprazole 40 MG Vial IVPUSH ONE (20:38)
[2022-08-20] MEDS ORDERED: Sodium Chloride 0.9% 10 ML Syringe FLUSH ONE (20:45)
[2022-08-20] MEDS ORDERED: Iopamidol 612 MG/ML 100 ML Bottle IV ONE (20:45)
[2022-08-20] MEDS ORDERED: Sodium Chloride 0.9% 50 ML IV ONE (20:45)
[2022-08-20 21:05] LABS: BASOPHILS ABSOLUTE AUTO 0.05 K/uL (0.00-0.10); BASOPHILS PERCENT AUTO 0.8 % (0.1-1.3); EOSINOPHILS PERCENT AUTO 0.2 % (0.0-5.4); HEMOGLOBIN 12.2 g/dL (11.2-15.5); IMMATURE GRAN PERCENT AUTO 0.3 % (0.0-0.7); LYMPHOCYTES ABSOLUTE AUTO 1.13 K/uL (0.8-3.3); LYMPHOCYTES PERCENT AUTO 17.6 % (11.4-47.7); MEAN CORPUSCULAR HEMOGLOBIN 31.9 pg (31.6-35.5); MEAN CORPUSCULAR VOLUME 96.6 fL (81.4-99.0); MONOCYTES ABSOLUTE AUTO 0.62 K/uL (0.20-0.90); MONOCYTES PERCENT AUTO 9.7 % (3.3-12.6); NEUTROPHILS ABSOLUTE AUTO 4.58 K/uL (1.0-7.6); NEUTROPHILS PERCENT AUTO 71.4 % (40.0-78.1); PLATELET COUNT,PLT 235 K/uL (130-375); RED BLOOD CELL COUNT 3.83 M/uL (3.77-5.24); WHITE BLOOD CELL COUNT,WBC 6.4 K/uL (3.2-11.0)
[2022-08-20 21:06] LABS: EOSINOPHILS ABSOLUTE AUTO 0.01 K/uL (0.00-0.40); IMMATURE GRAN ABSOLUTE AUTO 0.02 K/uL (0.00-0.23)
[2022-08-20 21:15] LABS: APPEARANCE,URINE CLEAR (CLEAR); BILIRUBIN,URINE NEGATIVE (NEGATIVE); COLOR,URINE YELLOW (YELLOW); GLUCOSE,URINE NEGATIVE (NEGATIVE); KETONES,URINE NEGATIVE (NEGATIVE); LEUKOCYTE ESTERASE,URINE NEGATIVE (NEGATIVE); NITRITE,URINE NEGATIVE (NEGATIVE); OCCULT BLOOD,URINE NEGATIVE (NEGATIVE); PROTEIN,URINE NEGATIVE (NEGATIVE); UROBILINOGEN,URINE 0.2 EU/dL (0.2-1.0)
[2022-08-20 21:22] LABS: AMORPHOUS SEDIMENT,URINE NOT SEEN; BACTERIA,URINE FEW; EPITHELIAL CELLS,URINE FEW; MUCUS,URINE RARE; RBC,URINE 0-5 (0-5)
[2022-08-20 21:26] LABS: A/G RATIO 0.9 (1.2-2.2); ALANINE AMINOTRANSFERASE,ALT 24 U/L (12-78); ALBUMIN 3.3 g/dL (3.4-5.0); ALKALINE PHOSPHATASE 71 U/L (46-116); ASPARTATE AMNIOTRANSFERASE,AST 25 U/L (15-37); BILIRUBIN TOTAL 0.4 mg/dL (0.2-1.0); BLOOD UREA NITROGEN,BUN 18 mg/dL (7-18); CALCIUM 9.6 mg/dL (8.5-10.1); CARBON DIOXIDE,CO2 29 mmol/L (21-32); CHLORIDE,CL 94 mmol/L (100-108); CREATININE 0.7 mg/dL (0.6-1.0); EST CRCL DRUG DOSING (CG) 43.74 mL/min; ESTIMATED GFR 86 mL/min (>60); GLUCOSE RANDOM 121 mg/dL (74-106); POTASSIUM,K 3.4 mmol/L (3.6-5.2); SODIUM,NA 129 mmol/L (140-148)
[2022-08-20 21:30] LABS: ANION GAP 9.4 mmol/L (5.0-14.0)
== END 2022-08-20 23:28 | disposition home or self-care (01) ==
LOC: JP.ED 20:01
DX: R10.11 Right upper quadrant pain (principal); I10 Essential (primary) hypertension; E87.1 Hypo-osmolality and hyponatremia; E87.6 Hypokalemia; J44.9 Chronic obstructive pulmonary disease, unspecified; K21.9 Gastro-esophageal reflux disease without esophagitis; Z88.8 Allergy status to other drugs, medicaments and biological substances; Z98.84 Bariatric surgery status; Z79.899 Other long term (current) drug therapy
CPT/HCPCS: 36415; 74177; 80053; 81001; 83605; 83690; 85025; 93005; 96374; 96375; 99284; C9113; J1170; J2405; J3490; Q9967

== ENCOUNTER 2022-09-05 11:36 | Emergency (ER) | payer MEDICARE ==
[2022-09-05 11:47] VITALS: BP 186/90; PULSE 71
[2022-09-05] MEDS ORDERED: HYDROmorphone 1 MG/ML Syringe IM ONE (12:05)
== END 2022-09-05 12:52 | disposition home or self-care (01) ==
LOC: JP.ED 11:36
DX: R10.9 Unspecified abdominal pain (principal); J44.9 Chronic obstructive pulmonary disease, unspecified; I10 Essential (primary) hypertension; Z88.6 Allergy status to analgesic agent; Z79.899 Other long term (current) drug therapy; Z90.49 Acquired absence of other specified parts of digestive tract
CPT/HCPCS: 96372; 99283; J1170

== ENCOUNTER 2022-09-07 07:00 | Day surgery (SDC) | payer MEDICARE ==
[2022-09-07] MEDS ORDERED: Dextrose 5%-Lactated Ringers 1,000 ML IV SCH (08:00)
[2022-09-07] MEDS ORDERED: Propofol 200 MG/20 ML SDV ONE (08:25)
[2022-09-07] MEDS ORDERED: fentaNYL 50 MCG/ML SDV ONE (08:25)
[2022-09-07 11:51] VITALS: BP 165/80; PULSE 84
== END 2022-09-07 11:40 | disposition home or self-care (01) ==
LOC: JP.SDS 07:00
PROVIDERS: ATTEND Surgery
DX: R10.9 Unspecified abdominal pain (principal); I10 Essential (primary) hypertension; M79.7 Fibromyalgia; E87.6 Hypokalemia; D64.9 Anemia, unspecified; F32.A Depression, unspecified; Z87.11 Personal history of peptic ulcer disease; Z98.84 Bariatric surgery status; Z90.49 Acquired absence of other specified parts of digestive tract
CPT/HCPCS: 43235; J2704; J3010; J7121

== ENCOUNTER 2023-03-08 13:27 | Emergency (ER) | payer MEDICARE ==
[2023-03-08] MEDS ORDERED: HYDROmorphone 0.5 MG/0.5 ML Syringe IM ONE (14:44)
[2023-03-08] MEDS ORDERED: HYDROmorphone 1 MG/ML Syringe IM ONE (14:59)
[2023-03-08 15:38] LABS: HEMATOCRIT 39.3 % (34.3-46.0); HEMOGLOBIN 13.1 g/dL (11.2-15.5); MEAN CORPUSCULAR HGB CONC 33.3 g/dL (31.6-35.5); MEAN CORPUSCULAR VOLUME 93.1 fL (81.4-99.0); RED BLOOD CELL COUNT 4.22 M/uL (3.77-5.24); WHITE BLOOD CELL COUNT,WBC 5.7 K/uL (3.2-11.0)
[2023-03-08 15:59] LABS: ALANINE AMINOTRANSFERASE,ALT 19 U/L (12-78); ALBUMIN 3.5 g/dL (3.4-5.0); ALKALINE PHOSPHATASE 76 U/L (46-116); ASPARTATE AMNIOTRANSFERASE,AST 25 U/L (15-37); BILIRUBIN TOTAL 0.4 mg/dL (0.2-1.0); BLOOD UREA NITROGEN,BUN 18 mg/dL (7-18); CALCIUM 9.2 mg/dL (8.5-10.1); CARBON DIOXIDE,CO2 29 mmol/L (21-32); CHLORIDE,CL 96 mmol/L (100-108); CREATININE 0.8 mg/dL (0.6-1.0); EST CRCL DRUG DOSING (CG) 38.27 mL/min; ESTIMATED GFR 73 mL/min (>60); GLUCOSE RANDOM 118 mg/dL (74-106); POTASSIUM,K 3.8 mmol/L (3.6-5.2); PROTEIN TOTAL,TP 6.9 g/dL (6.4-8.2); SODIUM,NA 131 mmol/L (140-148)
[2023-03-08 16:02] LABS: ANION GAP 9.8 mmol/L (5.0-14.0)
[2023-03-08 16:52] LABS: APPEARANCE,URINE SLIGHTLY CLOUDY (CLEAR); BILIRUBIN,URINE NEGATIVE (NEGATIVE); COLOR,URINE YELLOW (YELLOW); GLUCOSE,URINE NEGATIVE (NEGATIVE); KETONES,URINE NEGATIVE (NEGATIVE); LEUKOCYTE ESTERASE,URINE TRACE (NEGATIVE); NITRITE,URINE POSITIVE (NEGATIVE); OCCULT BLOOD,URINE NEGATIVE (NEGATIVE); PROTEIN,URINE NEGATIVE (NEGATIVE); UROBILINOGEN,URINE 0.2 EU/dL (0.2-1.0)
[2023-03-08 17:10] LABS: AMORPHOUS SEDIMENT,URINE NOT SEEN; BACTERIA,URINE MANY; EPITHELIAL CELLS,URINE RARE; MUCUS,URINE NOT SEEN; RBC,URINE 0-5 (0-5)
[2023-03-08 18:54] VITALS: BP 127/84; PULSE 77
== END 2023-03-08 18:50 | disposition home or self-care (01) ==
LOC: JP.ED 13:27
DX: M51.36 Other intervertebral disc degeneration, lumbar region (principal); N30.00 Acute cystitis without hematuria; I10 Essential (primary) hypertension; K21.9 Gastro-esophageal reflux disease without esophagitis; Z86.16 Personal history of COVID-19; Z90.49 Acquired absence of other specified parts of digestive tract; Z79.899 Other long term (current) drug therapy; Z88.6 Allergy status to analgesic agent; Z88.1 Allergy status to other antibiotic agents; Z88.5 Allergy status to narcotic agent; Z88.8 Allergy status to other drugs, medicaments and biological substances; Z87.891 Personal history of nicotine dependence
CPT/HCPCS: 36415; 72131; 74150; 76377; 80053; 81001; 83690; 85027; 87086; 87088; 87186; 96372; 99284; J1170

== ENCOUNTER 2023-09-24 19:45 | Inpatient (IN) | payer MEDICARE ==
[2023-09-24] MEDS: HYDROmorphone 0.5 MG/0.5 ML Syringe IVPUSH ONE ×2 (20:18→22:15)
[2023-09-24 22:02] LABS: BASOPHILS ABSOLUTE AUTO 0.04 K/uL (0.00-0.10); BASOPHILS PERCENT AUTO 0.4 % (0.1-1.3); EOSINOPHILS ABSOLUTE AUTO 0.03 K/uL (0.00-0.40); EOSINOPHILS PERCENT AUTO 0.3 % (0.0-5.4); HEMOGLOBIN 12.7 g/dL (11.2-15.5); IMMATURE GRAN ABSOLUTE AUTO 0.04 K/uL (0.00-0.23); IMMATURE GRAN PERCENT AUTO 0.4 % (0.0-0.7); LYMPHOCYTES ABSOLUTE AUTO 0.77 K/uL (0.8-3.3); LYMPHOCYTES PERCENT AUTO 6.9 % (11.4-47.7); MEAN CORPUSCULAR HEMOGLOBIN 31.8 pg (31.6-35.5); MEAN CORPUSCULAR HGB CONC 33.4 g/dL (31.6-35.5); MEAN CORPUSCULAR VOLUME 95.2 fL (81.4-99.0); MONOCYTES ABSOLUTE AUTO 0.61 K/uL (0.20-0.90); MONOCYTES PERCENT AUTO 5.4 % (3.3-12.6); NEUTROPHILS ABSOLUTE AUTO 9.75 K/uL (1.0-7.6); NEUTROPHILS PERCENT AUTO 86.6 % (40.0-78.1); PLATELET COUNT,PLT 233 K/uL (130-375); RED BLOOD CELL COUNT 3.99 M/uL (3.77-5.24); WHITE BLOOD CELL COUNT,WBC 11.2 K/uL (3.2-11.0)
[2023-09-24] MEDS: Sodium Chloride 0.9% 1,000 ML IV SCH (22:15)
[2023-09-24 22:25] LABS: A/G RATIO 0.8 (1.2-2.2); ALANINE AMINOTRANSFERASE,ALT 23 U/L (12-78); ALBUMIN 3.4 g/dL (3.4-5.0); ALKALINE PHOSPHATASE 97 U/L (46-116); ASPARTATE AMNIOTRANSFERASE,AST 22 U/L (15-37); BILIRUBIN TOTAL 0.3 mg/dL (0.2-1.0); BLOOD UREA NITROGEN,BUN 25 mg/dL (7-18); CALCIUM 10.2 mg/dL (8.5-10.1); CARBON DIOXIDE,CO2 32 mmol/L (21-32); CHLORIDE,CL 101 mmol/L (100-108); CREATININE 1.1 mg/dL (0.6-1.0); EST CRCL DRUG DOSING (CG) 27.35 mL/min; ESTIMATED GFR 50 mL/min (>60); GLUCOSE RANDOM 130 mg/dL (74-106); POTASSIUM,K 4.3 mmol/L (3.6-5.2); PROTEIN TOTAL,TP 7.5 g/dL (6.4-8.2); SODIUM,NA 138 mmol/L (140-148)
[2023-09-24 22:30] LABS: ANION GAP 9.3 mmol/L (5.0-14.0)
[2023-09-24] MEDS ORDERED: Ondansetron 4 MG Tab.DIS PO PRN (23:53)
[2023-09-24] MEDS ORDERED: Naloxone 0.4 MG/ML SDV IVPUSH PRN (23:53)
[2023-09-24] MEDS ORDERED: Ondansetron 4 MG/2 ML SDV IV PRN (23:53)
[2023-09-24] MEDS ORDERED: Acetaminophen 325 MG Tab PO PRN (23:53)
[2023-09-25 00:17] LABS: APPEARANCE,URINE CLEAR (CLEAR); BILIRUBIN,URINE NEGATIVE (NEGATIVE); COLOR,URINE YELLOW (YELLOW); GLUCOSE,URINE NEGATIVE (NEGATIVE); KETONES,URINE NEGATIVE (NEGATIVE); LEUKOCYTE ESTERASE,URINE NEGATIVE (NEGATIVE); NITRITE,URINE NEGATIVE (NEGATIVE); OCCULT BLOOD,URINE NEGATIVE (NEGATIVE); PROTEIN,URINE NEGATIVE (NEGATIVE); UROBILINOGEN,URINE 0.2 EU/dL (0.2-1.0)
[2023-09-25 00:18] LABS: AMORPHOUS SEDIMENT,URINE NOT SEEN; BACTERIA,URINE RARE; EPITHELIAL CELLS,URINE RARE; MUCUS,URINE RARE; RBC,URINE NOT SEEN (0-5); WBC,URINE 0-5 (0-5)
[2023-09-25] MEDS: HYDROmorphone 0.5 MG/0.5 ML Syringe IVPUSH PRN (00:44)
[2023-09-25 05:23] LABS: HEMATOCRIT 35.8 % (34.3-46.0); MEAN CORPUSCULAR HEMOGLOBIN 32.3 pg (31.6-35.5); MEAN CORPUSCULAR HGB CONC 33.5 g/dL (31.6-35.5); MEAN CORPUSCULAR VOLUME 96.5 fL (81.4-99.0); RED BLOOD CELL COUNT 3.71 M/uL (3.77-5.24); WHITE BLOOD CELL COUNT,WBC 9.7 K/uL (3.2-11.0)
[2023-09-25 05:52] LABS: PROTHROMBIN TIME 9.8 sec (9.2-10.6)
[2023-09-25 06:01] LABS: A/G RATIO 0.8 (1.2-2.2); ALANINE AMINOTRANSFERASE,ALT 22 U/L (12-78); ALKALINE PHOSPHATASE 85 U/L (46-116); ASPARTATE AMNIOTRANSFERASE,AST 21 U/L (15-37); BILIRUBIN TOTAL 0.3 mg/dL (0.2-1.0); BLOOD UREA NITROGEN,BUN 20 mg/dL (7-18); CALCIUM 9.5 mg/dL (8.5-10.1); CARBON DIOXIDE,CO2 31 mmol/L (21-32); CHLORIDE,CL 102 mmol/L (100-108); EST CRCL DRUG DOSING (CG) 30.08 mL/min; ESTIMATED GFR 56 mL/min (>60); GLUCOSE RANDOM 124 mg/dL (74-106); PROTEIN TOTAL,TP 6.9 g/dL (6.4-8.2); SODIUM,NA 139 mmol/L (140-148)
[2023-09-25] MEDS: amLODIPine 5 MG Tab PO SCH (08:14)
[2023-09-25] MEDS: Losartan 50 MG Tab PO SCH (08:15)
[2023-09-25] MEDS: Potassium Chloride 10 MEQ Cap.ER PO SCH (08:15)
[2023-09-25] MEDS: Ferrous Sulfate 325 MG Tab PO SCH (09:15)
[2023-09-25] MEDS: Pantoprazole 40 MG Tab.CR PO SCH (09:15)
[2023-09-25] MEDS: Multivitamins with Iron/Calcium/Folic Acid/Minerals Tab PO SCH (09:15)
[2023-09-25] MEDS: Magnesium Oxide 400 MG Tab PO SCH (09:15)
[2023-09-25] MEDS: Hydrochlorothiazide/Triamterene 25-37.5 Tab PO SCH (09:20)
[2023-09-25] MEDS ORDERED: Bupivacaine 0.5% 50 ML MDV ONE (14:16)
[2023-09-25] MEDS ORDERED: Propofol 200 MG/20 ML SDV ONE (16:36)
[2023-09-25] MEDS ORDERED: fentaNYL 100 MCG/2 ML SDV ONE (16:36)
[2023-09-25] MEDS ORDERED: Sodium Chloride 0.9% 10 ML ONE (17:22)
[2023-09-25] MEDS: ceFAZolin 1 GM Vial ONE (17:24)
[2023-09-25] MEDS ORDERED: Lactated Ringers 1,000 ML ONE (17:58)
[2023-09-25] MEDS: ARIPIPRAZOLE 2 MG PO SCH (20:13)
[2023-09-25] MEDS: Ketorolac 15 MG/ML SDV IVPUSH PRN (20:40)
[2023-09-25] MEDS: Acetaminophen 325 MG Tab PO SCH (20:41)
[2023-09-25] MEDS: Sennosides/Docusate Sodium 50-8.6 MG Tab PO SCH (20:41)
[2023-09-25] MEDS: Melatonin 3 MG Tab PO PRN (20:41)
[2023-09-25] MEDS: oxyCODONE 5 MG Tab PO PRN (21:12)
[2023-09-26 05:24] LABS: HEMATOCRIT 29.9 % (34.3-46.0); MEAN CORPUSCULAR HEMOGLOBIN 31.8 pg (31.6-35.5); MEAN CORPUSCULAR HGB CONC 33.4 g/dL (31.6-35.5); MEAN CORPUSCULAR VOLUME 95.2 fL (81.4-99.0); RED BLOOD CELL COUNT 3.14 M/uL (3.77-5.24); WHITE BLOOD CELL COUNT,WBC 6.4 K/uL (3.2-11.0)
[2023-09-26 05:36] LABS: CALCIUM 8.7 mg/dL (8.5-10.1); CREATININE 0.8 mg/dL (0.6-1.0); EST CRCL DRUG DOSING (CG) 37.6 mL/min; POTASSIUM,K 3.8 mmol/L (3.6-5.2)
[2023-09-26 05:39] LABS: ANION GAP 11.8 mmol/L (5.0-14.0)
[2023-09-26] MEDS: ARIPiprazole 10 MG Tab PO SCH (08:40)
[2023-09-26] MEDS: Acetaminophen 325 MG Tab PO SCH (10:10)
[2023-09-26] MEDS: Enoxaparin 40 MG/0.4 ML Syringe SUBCUT SCH (21:53)
[2023-09-28] MEDS: tiZANidine 2 MG Tab PO PRN (08:23)
[2023-09-28] MEDS ORDERED: tiZANidine 2 MG Tab PO PRN (09:12)
[2023-10-01 12:05] VITALS: BP 137/78; PULSE 85
== END 2023-10-01 14:23 | DRG 481 ==
LOC: JP.ED 19:45 → JP.MS 23:27
PROVIDERS: ADMIT Registered Nurse; ATTEND Specialist
PROC: 0QSB04Z Reposition Right Lower Femur with Internal Fixation Device, Open Approach (ICD-10-PCS; principal; 2023-09-25 15:15)
DX: S72.421A Displaced fracture of lateral condyle of right femur, initial encounter for closed fracture (principal); S72.401A Unspecified fracture of lower end of right femur, initial encounter for closed fracture; D84.9 Immunodeficiency, unspecified; I49.1 Atrial premature depolarization; I10 Essential (primary) hypertension; Z88.5 Allergy status to narcotic agent; Z88.1 Allergy status to other antibiotic agents; X50.1XXA Overexertion from prolonged static or awkward postures, initial encounter; G47.30 Sleep apnea, unspecified; K21.9 Gastro-esophageal reflux disease without esophagitis; M19.90 Unspecified osteoarthritis, unspecified site; M81.0 Age-related osteoporosis without current pathological fracture; F32.A Depression, unspecified; M79.7 Fibromyalgia; Z96.641 Presence of right artificial hip joint; Z88.8 Allergy status to other drugs, medicaments and biological substances; Z79.899 Other long term (current) drug therapy; Z87.81 Personal history of (healed) traumatic fracture; Z85.41 Personal history of malignant neoplasm of cervix uteri; Z86.16 Personal history of COVID-19; Z98.49 Cataract extraction status, unspecified eye; Z90.49 Acquired absence of other specified parts of digestive tract; Z90.89 Acquired absence of other organs; Z98.84 Bariatric surgery status; Z98.890 Other specified postprocedural states; Z87.11 Personal history of peptic ulcer disease; W19.XXXA Unspecified fall, initial encounter
CPT/HCPCS: 36415; 71045 ×2; 73502 ×2; 73564 ×2; 80053; 85025; 93005; J1170 ×2; J7030; 01360-QZ; 76000; 80048; 81001; 85018; 85027; 85610; 93010; 96374; 96376; 97110-GO; 97110-GP; 97161-GP; 97165-GO; 99222; 99231; 99232; 99239; 99284; 99285-25; A9270-GY; C1713; J0665; J0690; J1650; J1885; J2704; J3010; J3490; J7120

== ENCOUNTER 2024-04-29 20:45 | Emergency (ER) | payer BC, MEDICAID, MEDICARE ==
[2024-04-29 21:03] VITALS: BP 190/90; PULSE 87
[2024-04-29] MEDS ORDERED: Naloxone 0.4 MG/ML SDV IVPUSH PRN (22:14)
[2024-04-29 22:22] LABS: BASOPHILS ABSOLUTE AUTO 0.04 K/uL (0.00-0.10); BASOPHILS PERCENT AUTO 0.5 % (0.1-1.3); HEMATOCRIT 38.2 % (34.3-46.0); HEMOGLOBIN 12.8 g/dL (11.2-15.5); IMMATURE GRAN PERCENT AUTO 0.2 % (0.0-0.7); LYMPHOCYTES ABSOLUTE AUTO 1.04 K/uL (0.8-3.3); LYMPHOCYTES PERCENT AUTO 12.7 % (11.4-47.7); MEAN CORPUSCULAR HEMOGLOBIN 31.9 pg (31.6-35.5); MEAN CORPUSCULAR HGB CONC 33.5 g/dL (31.6-35.5); MEAN CORPUSCULAR VOLUME 95.3 fL (81.4-99.0); MONOCYTES ABSOLUTE AUTO 0.54 K/uL (0.20-0.90); MONOCYTES PERCENT AUTO 6.6 % (3.3-12.6); NEUTROPHILS ABSOLUTE AUTO 6.57 K/uL (1.0-7.6); PLATELET COUNT,PLT 251 K/uL (130-375); RED BLOOD CELL COUNT 4.01 M/uL (3.77-5.24); WHITE BLOOD CELL COUNT,WBC 8.2 K/uL (3.2-11.0)
[2024-04-29] MEDS: HYDROmorphone 1 MG/ML Syringe IM ONE (22:23)
[2024-04-29 22:25] LABS: IMMATURE GRAN ABSOLUTE AUTO 0.02 K/uL (0.00-0.23)
[2024-04-29 22:38] LABS: BLOOD UREA NITROGEN,BUN 27 mg/dL (7-18); CALCIUM 9.8 mg/dL (8.5-10.1); CARBON DIOXIDE,CO2 33 mmol/L (21-32); CHLORIDE,CL 96 mmol/L (100-108); EST CRCL DRUG DOSING (CG) 30.08 mL/min; ESTIMATED GFR 56 mL/min (>60); GLUCOSE RANDOM 120 mg/dL (74-106); POTASSIUM,K 3.9 mmol/L (3.6-5.2); SODIUM,NA 135 mmol/L (140-148)
[2024-04-29 22:38] LABS: APPEARANCE,URINE CLEAR (CLEAR); BILIRUBIN,URINE NEGATIVE (NEGATIVE); COLOR,URINE YELLOW (YELLOW); GLUCOSE,URINE NEGATIVE (NEGATIVE); KETONES,URINE NEGATIVE (NEGATIVE); LEUKOCYTE ESTERASE,URINE NEGATIVE (NEGATIVE); NITRITE,URINE NEGATIVE (NEGATIVE); OCCULT BLOOD,URINE SMALL (NEGATIVE); PROTEIN,URINE NEGATIVE (NEGATIVE); UROBILINOGEN,URINE 0.2 EU/dL (0.2-1.0)
[2024-04-29 22:39] LABS: ANION GAP 9.9 mmol/L (5.0-14.0); C-REACTIVE PROTEIN < 0.50 mg/dL (<0.50)
[2024-04-29 22:48] LABS: AMORPHOUS SEDIMENT,URINE FEW; BACTERIA,URINE MANY; EPITHELIAL CELLS,URINE RARE; MUCUS,URINE NOT SEEN; RBC,URINE 0-5 (0-5); WBC,URINE 0-5 (0-5)
[2024-04-29] MEDS: Ketorolac 30 MG/ML SDV IM ONE (23:04)
== END 2024-04-30 00:24 | disposition home or self-care (01) ==
LOC: JP.ED 20:45
DX: K59.00 Constipation, unspecified (principal); M79.7 Fibromyalgia; I10 Essential (primary) hypertension; K21.9 Gastro-esophageal reflux disease without esophagitis; Z86.16 Personal history of COVID-19; Z90.49 Acquired absence of other specified parts of digestive tract; Z98.84 Bariatric surgery status; Z96.649 Presence of unspecified artificial hip joint; Z88.6 Allergy status to analgesic agent; Z88.8 Allergy status to other drugs, medicaments and biological substances; Z79.899 Other long term (current) drug therapy
CPT/HCPCS: 36415; 74176; 80048; 81001; 85025; 86140; 96372; 99284; J1171

== ENCOUNTER 2024-09-21 14:07 | Emergency (ER) | payer MEDICARE ==
[2024-09-21 14:35] VITALS: BP 177/80; PULSE 52
== END 2024-09-21 15:17 | disposition home or self-care (01) ==
LOC: JP.ED 14:07
DX: S30.860A Insect bite (nonvenomous) of lower back and pelvis, initial encounter (principal); I10 Essential (primary) hypertension; K21.9 Gastro-esophageal reflux disease without esophagitis; Z86.16 Personal history of COVID-19; Z88.6 Allergy status to analgesic agent; Z88.8 Allergy status to other drugs, medicaments and biological substances; Z79.899 Other long term (current) drug therapy; W57.XXXA Bitten or stung by nonvenomous insect and other nonvenomous arthropods, initial encounter; Y93.89 Activity, other specified
CPT/HCPCS: 99281

== ENCOUNTER 2025-01-15 11:36 | Emergency (ER) | payer MEDICARE ==
[2025-01-15 12:32] LABS: APPEARANCE,URINE SLIGHTLY CLOUDY (CLEAR); GLUCOSE,URINE NEGATIVE (NEGATIVE); OCCULT BLOOD,URINE NEGATIVE (NEGATIVE)
[2025-01-15] MEDS: Ketorolac 30 MG/ML SDV IM ONE (12:42)
[2025-01-15 12:45] LABS: SQUAMOUS EPITHELIAL CELLS,UR RARE /HPF; UROTHELIAL CELLS,URINE NOT SEEN /HPF
[2025-01-15 13:52] VITALS: BP 187/102; PULSE 77
== END 2025-01-15 14:20 | disposition home or self-care (01) ==
LOC: JP.ED 11:36
DX: N28.9 Disorder of kidney and ureter, unspecified (principal); N30.00 Acute cystitis without hematuria; I10 Essential (primary) hypertension; K21.9 Gastro-esophageal reflux disease without esophagitis; Z88.8 Allergy status to other drugs, medicaments and biological substances; Z79.899 Other long term (current) drug therapy; Z86.16 Personal history of COVID-19; Z90.49 Acquired absence of other specified parts of digestive tract
CPT/HCPCS: 74176; 81001; 96372; 99284; J1885